=== PATIENT | male | born 1945 | race Caucasian/White ===

== ENCOUNTER → 2017-07-04 14:33 | Outpatient (CLI) | payer MEDICARE, SELFPAY ==
[2017-07-04 15:32] LABS: PSA,Total- Diagnostic 6.26 ng/mL (0.0-4.0)
== END ==
PROVIDERS: Family Provider Family Medicine; PCP Family Medicine; Visit Provider Urology
DX: R97.20 Elevated prostate specific antigen [PSA] (principal)
CPT/HCPCS: 36415; 84153

== ENCOUNTER 2018-03-21 10:34 | Emergency (ER) | payer MEDICARE, SELFPAY ==
[2018-03-21 10:35] VITALS: BP 122/76; PULSE 77; RESP 16; TEMP 36.6; O2SAT 100; BMI 27.4
--- NOTE | 2018-03-21 10:50 | RAD_ITS ---
STUDY: X-RAY - LEFT KNEE REASON FOR EXAM: Male, 72 years old. TECHNIQUE: view(s) of the knee. COMPARISON: None. FINDINGS: There is total knee prosthesis. Multiple calcifications noted within the joint. No joint effusion seen. No obvious complication. RAD/Knee 3 Views IMPRESSION: Intact total knee replacement. Electronically Signed: Jeremy Anderson, at 12:06 EST Tel , Service support ,
[2018-03-21] MEDS: 0.9% Normal Saline 1,000 ML 150 ML IV (11:03)
[2018-03-21 11:18] LABS: Erythrocyte Sedimentation Rate 7 mm/hr (0-20)
[2018-03-21 11:20] LABS: Absolute Lymphocyte Count 1.03 X10^3/ul (0.83-4.51); Absolute Neutrophil Count 3.1 X10^3/uL (2.0-7.7); Basophil# 0.03 X10^3/uL; Basophil% 0.7 % (0-1); Eosinophil# 0.08 X10^3/uL; Eosinophils% 1.8 % (0-5); Hematocrit 41.2 % (40-54); Hemoglobin 13.7 g/dl (13.0-16.5); Lymphocyte # 1.03 X10^3/ul (4.0); Lymphocyte % 23.7 % (19-41); Mean Corp Hgb Conc 33.3 g/gl (32-36); Mean Corpuscular Hgb 32.9 pg (27.0-32.0); Mean Corpuscular Volume 98.8 fL (80-94); Mean Platelet Vol. 9.2 fl (6.2-12.0); Monocyte# 0.15 X10^3/uL; Monocyte% 3.4 % (0-10); Neutrophil # 3.06 X10^3/uL (2.7-7.7); Neutrophil % 70.4 % (47-70); Platelet Count 207 K/mm3 (150-450); RBC Distribution Width CV 13.7 % (11.6-14.6); RBC Distribution Width SD 49.6 fl (35.1-43.9); Red Blood Count 4.17 M/mm3 (4.6-6.2); White Blood Count 4.4 K/mm3 (4.4-11.0)
[2018-03-21 11:24] LABS: POSITIVE COUNT NO; POSITIVE DIFFERENTIAL NO; POSITIVE MORPHOLOGY NO
[2018-03-21 11:31] LABS: Anion Gap 6 (5-15); BUN 12 mg/dL (7-18); BUN/Creat Ratio 14.9 RATIO (10-20); CRP < 2.90 mg/L (0.0-3.0); Calcium,Total 8.7 mg/dL (8.5-10.1); Chloride 103 mmol/L (98-107); Creatinine, Serum 0.81 mg/dL (0.70-1.30); EST Glomerular Filtration Rate 100 mL/min (>60); Est Glom Filt Rate - Afr Amer 121 mL/min (>60); Estimated Creatinine Clearance 69.03 ml/min; Glucose 88 mg/dL (74-106); Potassium 4.2 mmol/L (3.5-5.1); Sodium Level 138 mmol/L (136-145)
[2018-03-21 11:42] VITALS: BP 103/70; PULSE 77; RESP 16; TEMP 36.6; O2SAT 98
--- NOTE | 2018-03-21 12:20 | ED.DCSUM_ITS ---
- ER Visit Summary Date of Service: 03/21/18 Chief Complaint: [Left knee pain] History of Present Illness: The patient is a 72 M [presents the emergency department complaint of pain in his left knee times 2 days. Patient denies any trauma. Patient denies any fever. [facility] [place] [facility] jail but is having a hard time bearing weight. Patient sent to the ER for evaluation today when it was noted that the knee appeared swollen and he has erythema over it and it is warm to the touch. Patient tells me he had a left knee replacement in [address] Zack Alcantara.] Physical Examination: [HEENT-PERRLA, EOMI. Cranial nerves II through XII grossly intact. TMs clear. Mucous membranes moist. No adenopathy. Cardiovascular-regular rate and rhythm without murmur or ectopy Lungs-clear to auscultation, chest wall stable without crepitus or subcu emphysema Abdomen-normoactive bowel sounds, soft, nontender, no rebound or rigidity, no peritoneal signs. Extremities-intact ?4, normal range of motion, normal pulses, atraumatic left knee-patient has a small effusion noted. Patient has some tenderness over the superior lateral aspect of the patella. Patient has some faint erythema over the lateral aspect of the knee. Neurovascular intact distally. There is no li mb injury streaking. Knee is slightly warm to touch and he does have pain with flexion extension of the knee.] Test Results: [CBC with differential obtained showed a white blood cell count of 4.4, hemoglobin 13.7, hematocrit 44, platelets 207. Sed rate was 7. CRP was less than 2.90. X-ray of the left knee showed left total knee to be intact otherwise nothing acute.] Emergency Department Course and Treatment: [Patient case was discussed with Dr. Zack Alcantara who is patient's surgeon of record. At this point I was asked not to perform arthrocentesis but rather have patient follow-up with his office in 2 days. I discussed this with the patient and his sister who understand the plan. They understand I cannot completely rule out a septic joint versus inflammatory arthropathy. I will cover patient with Keflex and patient to see Dr. Zack Alcantara in 2 days. I did outline the area of erythema with permanent marker and advised to return if fever, increasing pain, increased redness or swelling, or condition should worsen anyway.] Treatment Plan: [Patient will be treated with Keflex and follow-up with orthopedic surgeon in 2 days] Disposition: [Discharged home in stable condition] Impression: [Left knee pain Cellulitis left knee] This note was generated with [employer] dictation software. It may contain incorrect words, spelling, and punctuation that were not noted in review of the chart prior to signing ED Disposition - Plan for ED Patient: Chief Complaint: Lower Extremity Injury Referrals: Landon Doe DO [Primary Care Provider] -
--- NOTE | 2018-03-21 12:23 | ED.DEP ---
ED Disposition - Plan for ED Patient: Chief Complaint: Lower Extremity Injury Instructions: ED Knee Pain UKO, ED Infec Skin Cellulitis Prescriptions: Cephalexin [Keflex] 500 mg PO Q6 #40 cap Referrals: Landon Doe DO [Primary Care Provider] - Zack Alcantara DO [STAFF PHYSICIAN] - 2 Days
[2018-03-21] MEDS: Cephalexin 250 MG Capsule 500 MG PO (12:31)
[2018-03-21 12:35] VITALS: BP 119/82; PULSE 77; RESP 16; O2SAT 98
== END 2018-03-21 12:56 | disposition home or self-care (01) ==
LOC: ED 11:27
PROVIDERS: Emergency Provider Emergency Medicine; Family Provider Family Medicine; PCP Family Medicine
DX: M25.562 Pain in left knee (principal); L03.116 Cellulitis of left lower limb; K21.9 Gastro-esophageal reflux disease without esophagitis; Z96.659 Presence of unspecified artificial knee joint
CPT/HCPCS: 73562; 80048; 85025; 85652; 86140; 87040; 96360; 96361; 99283; J7030; A4216

== ENCOUNTER → 2020-03-16 16:42 | Outpatient (REF) | payer MEDICARE, SELFPAY | PROVIDERS: PCP Family Medicine; Referring Provider Family Medicine; Visit Provider Family Medicine | DX: J02.9 Acute pharyngitis, unspecified (principal) | CPT/HCPCS: 87804 ==

== ENCOUNTER → 2020-07-31 05:30 | Outpatient (REF) | payer MEDICARE, SELFPAY ==
[2020-07-31 08:37] LABS: PSA,Total - Annual Screen 7.04 ng/mL (0.00-4.00)
== END ==
PROVIDERS: PCP Family Medicine
DX: Z12.5 Encounter for screening for malignant neoplasm of prostate (principal)
CPT/HCPCS: 36415; 84153; G0103

== ENCOUNTER → 2022-07-22 | Outpatient (CLI) | payer MEDICARE, SELFPAY ==
[2022-07-22 17:56] LABS: Absolute Lymphocyte Count 0.75 X10^3/uL (0.83-4.51); Absolute Neutrophil Count 2.5 X10^3/uL (2.0-7.7); Basophil# 0.05 X10^3/uL; Basophil% 1.3 % (0-1); Eosinophil# 0.03 X10^3/uL; Eosinophils% 0.8 % (0-5); Hematocrit 39.9 % (40-54); Hemoglobin 13.1 g/dL (13.0-16.5); Lymphocyte # 0.75 X10^3/ul (0.83-4.51); Lymphocyte % 19.6 % (19-41); Mean Corp Hgb Conc 32.8 g/dL (32-36); Mean Corpuscular Hgb 33.2 pg (27.0-32.0); Mean Platelet Vol. 9.7 fl (6.2-12.0); Monocyte# 0.54 X10^3/uL; Monocyte% 14.1 % (0-10); NRBC Flagged by Analyzer 0 % (0-5); Neutrophil # 2.45 X10^3/uL (2.7-7.7); Neutrophil % 63.9 % (47-70); Platelet Count 246 K/mm3 (150-450); RBC Distribution Width CV 13.3 % (11.6-14.6); RBC Distribution Width SD 49.9 fl (35.1-43.9); Red Blood Count 3.95 M/mm3 (4.6-6.2); White Blood Count 3.8 K/mm3 (4.4-11.0)
[2022-07-22 18:09] LABS: Vitamin D,25 Hydroxy 22.3 ng/mL
[2022-07-22 18:16] LABS: ALB/GLOB Ratio 1.2 RATIO (0.9-2.4); AST(SGOT) 22 U/L (15-37); Alanine Aminotransfer ALT/SGPT 25 U/L (16-61); Albumin, Serum 3.8 g/dL (3.2-5.0); Alkaline Phosphatase 58 U/L (45-117); Anion Gap 5 (5-15); BUN 12 mg/dL (7-18); BUN/Creat Ratio 14.7 RATIO (10-20); Calcium,Total 8.6 mg/dL (8.5-10.1); Chloride 98 mmol/L (98-107); Creatinine, Serum 0.82 mg/dL (0.70-1.30); EST Glomerular Filtration Rate 97 mL/min (>60); Est Glom Filt Rate - Afr Amer 118 mL/min (>60); Globulin 3.2 g/dL (2.2-4.2); Glucose 118 mg/dL (74-106); Potassium 4.1 mmol/L (3.5-5.1); Sodium Level 130 mmol/L (136-145); Thyroid Stim Hormone (TSH) 1.74 uIU/mL (0.358-3.74)
== END | disposition home or self-care (01) ==
LOC: BFHLAB 15:07
PROVIDERS: PCP Family Medicine; Referring Provider Family Medicine; Visit Provider Family Medicine
DX: I95.9 Hypotension, unspecified (principal); E55.9 Vitamin D deficiency, unspecified; R53.83 Other fatigue
CPT/HCPCS: 36415; 80053; 82306; 84443; 85025

== ENCOUNTER → 2022-11-07 | Outpatient (CLI) | payer MEDICARE, SELFPAY ==
[2022-11-07 17:28] LABS: Vitamin B12 249 pg/mL (211-911)
== END | disposition home or self-care (01) ==
LOC: BFHLAB 13:28
PROVIDERS: PCP Family Medicine; Referring Provider Family Medicine; Visit Provider Family Medicine
DX: D75.89 Other specified diseases of blood and blood-forming organs (principal)
CPT/HCPCS: 36415; 82607

== ENCOUNTER → 2023-07-24 | Outpatient (CLI) | payer MEDICARE, SELFPAY ==
[2023-07-24 17:52] LABS: Absolute Lymphocyte Count 0.74 X10^3/uL (0.83-4.51); Absolute Neutrophil Count 2.9 X10^3/uL (2.0-7.7); Basophil# 0.06 X10^3/uL; Basophil% 1.3 % (0-1); Eosinophil# 0.08 X10^3/uL; Eosinophils% 1.8 % (0-5); Hematocrit 38.1 % (40-54); Hemoglobin 12.8 g/dL (13.0-16.5); Lymphocyte # 0.74 X10^3/ul (0.83-4.51); Lymphocyte % 16.4 % (19-41); Mean Corp Hgb Conc 33.6 g/dL (32-36); Mean Corpuscular Hgb 33.1 pg (27.0-32.0); Mean Corpuscular Volume 98.4 fL (80-94); Mean Platelet Vol. 9.6 fl (6.2-12.0); Monocyte# 0.66 X10^3/uL; Monocyte% 14.7 % (0-10); NRBC Flagged by Analyzer 0 % (0-5); Neutrophil # 2.93 X10^3/uL (2.7-7.7); Neutrophil % 65.1 % (47-70); Platelet Count 225 K/mm3 (150-450); RBC Distribution Width SD 50.4 fl (35.1-43.9); Red Blood Count 3.87 M/mm3 (4.6-6.2); White Blood Count 4.5 K/mm3 (4.4-11.0)
[2023-07-24 18:00] LABS: Vitamin B12 623 pg/mL (211-911); Vitamin D,25 Hydroxy 35.8 ng/mL
[2023-07-24 18:16] LABS: ALB/GLOB Ratio 1.1 RATIO (0.9-2.4); AST(SGOT) 21 U/L (15-37); Alanine Aminotransfer ALT/SGPT 19 U/L (16-61); Albumin, Serum 3.7 g/dL (3.2-5.0); Alkaline Phosphatase 62 U/L (45-117); Anion Gap 8 (5-15); BUN 16 mg/dL (7-18); BUN/Creat Ratio 22.8 RATIO (10-20); Calcium,Total 8.8 mg/dL (8.5-10.1); Chloride 101 mmol/L (98-107); EST Glomerular Filtration Rate 116 mL/min (>60); Est Glom Filt Rate - Afr Amer 140 mL/min (>60); Globulin 3.3 g/dL (2.2-4.2); Glucose 125 mg/dL (74-106); Potassium 4.3 mmol/L (3.5-5.1); Sodium Level 132 mmol/L (136-145)
== END | disposition home or self-care (01) ==
LOC: BFHLAB 14:05
PROVIDERS: PCP Family Medicine; Visit Provider Family Medicine
DX: D72.819 Decreased white blood cell count, unspecified (principal); D75.89 Other specified diseases of blood and blood-forming organs; E55.9 Vitamin D deficiency, unspecified; R53.83 Other fatigue
CPT/HCPCS: 36415; 80053; 82306; 82607; 85025

== ENCOUNTER → 2024-12-09 | Outpatient (CLI) | payer MEDICARE, MEDICAID, SELFPAY ==
[2024-12-09 17:38] LABS: Hematocrit 39.6 % (40-54); Hemoglobin 13.4 g/dL (13.0-16.5); Immature Granulocytes Count 0.010 X10^3/uL (0.0-0.0); Mean Corp Hgb Conc 33.8 g/dL (32-36); Mean Corpuscular Volume 97.8 fL (80-94); Mean Platelet Vol. 9.8 fl (6.2-12.0); NRBC Flagged by Analyzer 0 % (0-5); Platelet Count 253 K/mm3 (150-450); RBC Distribution Width CV 14.0 % (11.6-14.6); RBC Distribution Width SD 50.4 fl (35.1-43.9); Red Blood Count 4.05 M/mm3 (4.6-6.2); White Blood Count 4.4 K/mm3 (4.4-11.0)
[2024-12-09 19:34] LABS: CRP < 3.00 mg/L (0.0-3.0); Uric Acid 4.5 mg/dL (3.5-7.2)
--- OUTSIDE RECORDS SUMMARY | 2024-12-09 23:38 | XMS RPT_ITS | CCD ---
Author Organization [facility] Care Team Providers Care Chief Service Observer Name Role Phone Landon Doe Primary Care Provider Landon Doe Attending Unavailable Landon Doe Referring Unavailable Landon Doe Primary Care Unavailable Landon Doe Attending Unavailable Landon Doe Primary Care Unavailable Allergies Allergy Classification Reported Allergen(s) Allergy Type Date of Onset Reaction(s) Facility (3 sources) Penicillins Allergy to substance 03-21-2018 Unknown [facility] (1 source) Penicillins Drug allergy (disorder) 03-21-2018 [facility] Repository Medications Current Medications Medication Drug Class(es) Dates Sig (Normalized) Sig (Original) acetaminophen 500 mg oral tablet (3 sources) Start: 04-09-2015 Acetaminophen (Non-Aspirin Extra Strength) 500 MG tablet Active 1000 MG PO EVERY 6 HOURS NEEDED April 09, 2015 1:00am acetaminophen 325 mg / oxyCODONE hydrochloride 5 mg oral tablet (3 sources) Opioid Agonist Start: 10-21-2016 take 1 tablet by mouth every four hours as needed Oxycodone-Acetamino phen Active 1 - 2 TABLET PO EVERY 4 HOURS NEEDED October 21, 2016 12:00am ascorbic acid 500 mg oral tablet (4 sources) Vitamin C Start: 04-09-2015 take 1 tablet by mouth once daily Ascorbic Acid (Vitamin C) (Vitamin C) 500 MG tablet Active 500 MG PO DAILY April 09, 2015 1:00am Comment on above: Take 500 mg by mouth once daily. calcium carbonate 1500 mg oral tablet (3 sources) Start: 04-09-2015 take 1200 mg by mouth twice daily Calcium Carbonate Active 1200 MG PO TWICE A DAY April 09, 2015 1:00am cephalexin 500 mg oral capsule (3 sources) Cephalosporin Antibacterial Start: 03-21-2018 take 500 mg by mouth every six hours Cephalexin Active 500 MG PO EVERY 6 HOURS 40 March 21, 2018 1:00am cholecalciferol 0.025 mg oral tablet (3 sources) Vitamin D Start: 04-09-2015 take 1 tablet by mouth twice daily Cholecalciferol (Vitamin D3) (Vitamin D3) 1,000 UNIT tablet Active 1000 UNIT PO TWICE A DAY April 09, 2015 1:00am docusate sodium 100 mg oral capsule (3 sources) Start: 04-09-2015 take 1 capsule by mouth once daily as needed Docusate Sodium (Dok) 100 MG capsule Active 100 MG PO DAILY NEEDED April 09, 2015 1:00am Fish Oil-Dha-Epa (3 sources) Start: 04-09-2015 Fish Oil-Dha-Epa Active 1 EACH PO DAILY April 09, 2015 1:00am hydrocortisone butyrate 1 mg/ml topical cream (3 sources) Corticosteroid Start: 04-09-2015 Hydrocortisone Butyr-Emollient Active 45 GM TP DAILY April 09, 2015 1:00am lansoprazole 15 mg delayed release oral capsule (5 sources) Proton Pump Inhibitor Start: 04-09-2015 take 1 capsule by mouth once daily Lansoprazole (Prevacid) 15 MG capsule Active 15 MG PO DAILY April 09, 2015 1:00am Start: 10-05-2009 take 1 capsule by mo ut once daily lansoprazole (PREVACID) 30 mg capsule Take 1 capsule by mouth once daily. 30 capsule 12 01/04/2016 Active Comment on above: Take (1) once daily as needed Take 1 capsule by mo uth once daily. magnesium hydroxide 80 mg/ml oral suspension (3 sources) Start: 04-09-2015 take 1 mL by mouth once daily as needed Magnesium Hydroxide Active 30 ML PO DAILY NEEDED April 09, 2015 1:00am Bawjufge-Ewv-If-Lycopen -Lutein (Centrum Silver) 1 EACH tablet (3 sources) Start: 04-09-2015 take 1 tablet by mouth once daily Fqgkfyfi-Jlo-Le-Lyc open-Lutein (Centrum Silver) 1 EACH tablet Active 1 EACH PO DAILY April 09, 2015 1:00am traMADol hydrochloride 50 mg oral tablet (4 sources) Opioid Agonist Start: 08-23-2015 take 50 mg by mouth twice daily as needed Tramadol Active 50 MG PO TWICE DAILY NEEDED October 21, 2016 12:00am Completed/Discontinued Medications Medication Drug Class(es) Dates Sig (Normalized) Sig (Original) calcium carbonate 600 mg / cholecalciferol 125 unt oral tablet (1 source) Vitamin D Start: 10-05-2009 calcium carbonate/vitamin d3(CALCIUM 600 + D(3) 600 MG-125 UNIT TAB) Take one(1) tablet two(2) times daily. 0 10/05/2009 Active Comment on above: Take one(1) tablet t wo(2) times daily. chlordiazePOXIDE hydrochloride 5 mg / clidinium bromide 2.5 mg oral capsule (1 source) Anticholinergic, Benzodiazepine Start: 08-02-2010 take 1 capsule by mouth once daily, then take 5 capsules by mouth once chlordiazepoxide- clidinium 5-2.5 mg ORAL per capsule Indications: Dyspepsia , Abdominal pain, unspecified site Take 1 capsule by mouth. Take one(1) capsule two(2) times daily. (may use generic) 30 capsule 3 08/02/2010 Active Comment on above: Take 1 capsule by mo ut. Take one(1) capsule two(2) times daily. (may use generic) Fish Oil-Amado-3 Fatty Acids 300-1,000 mg cap (1 source) Fish Oil-Amado-3 Fatty Acids 300-1,000 mg cap Take by mouth twice daily. 0 Active Comment on above: Take by mouth twice daily. MEDICATION, NON-DATABASE (1 source) Start: 10-05-2009 MEDICATION, NON-DATABASE Vitamin D 1000 IU twice a day 0 10/05/2009 Active Comment on above: Vitamin D 1000 IU tw ice a day MULTIVITAMIN TAB (1 source) Start: 10-01-2009 MULTIVITAMIN TAB Take one(1) tablet daily. 0 10/01/2009 Active Comment on above: Take one(1) tablet d aily. naproxen sodium 220 mg oral tablet (3 sources) Nonsteroidal Anti-inflammatory Drug Start: 04-09-2015 End: 04-20-2015 take 1 tablet by mouth every twelve hours as needed Naproxen Sodium (Aleve) 220 MG tablet Discontinued 220 MG PO EVERY 12 HOURS NEEDED April 09, 2015 1:00am April 20, 2015 3:15pm Problems Active Problems Problem Classification Problem Date Documented Da te Episodic/Chronic Deficiency and other anemia (1 source) Iron deficiency anemia due to blood loss; Translations: [Iron deficiency anemia secondary to blood loss (chronic)] Onset: 6 04-18-2015 Chronic Diseases of white blood cells (1 source) Decreased white blood cell count, unspecified; Translations: [Decreased white blood cell count, unspecified] Onset: 4 Chronic Gastrointestinal hemorrhage (3 sources) Gastritis medicamentosa; Translations: [Gastrointestinal hemorrhage, unspecified] 04-09-2015 Episodic Other connective tissue disease (3 sources) Pain in lower limb; Translations: [Pain in leg, unspecified] 04-09-2015 Episodic Other connective tissue disease (3 sources) Pain in left lower limb; Translations: [Pain in left leg] 04-09-2015 Episodic Other gastrointestinal disorders (3 sources) Pneumoperitoneum; Translations: [Other specified disorders of peritoneum] 04-09-2015 Episodic Other hematologic conditions (1 source) 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; Translations: [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] Onset: 3 Chronic Other injuries and conditions due to external causes (3 sources) Injury of head; Translations: [Unspecified injury of head, initial encounter] 04-09-2015 Episodic Peritonitis and intestinal abscess (3 sources) Peritonitis; Translations: [Peritonitis, unspecified] 04-09-2015 Episodic Residual codes; unclassified (1 source) Family history of malignant neoplasm of gastrointestinal tract; Translations: [Family history of malignant neoplasm of digestive organs] 10-01-2009 Episodic Unclassified (3 sources) multiple orthopedic surgeries 04-09-2015 Past or Other Problems Problem Classification Problem Date Documented Da te Episodic/Chronic Gastritis and duodenitis (1 source) Acute gastritis; Translations: [Acute gastritis without bleeding] Onset: 11-12-2009 05-07-2015 Episodic Gastroduodenal ulcer (except hemorrhage) (1 source) Acute gastric ulcer with perforation; Translations: [Acute gastric ulcer with perforation] Onset: 04-18-2015 04-18-2015 Episodic Shock (1 source) Hypovolemic shock; Translations: [Hypovolemic shock] Onset: 04-18-2015 04-18-2015 Episodic Results Test Name Value Interpretation Reference Range Facility Absolute lymphocyte countOrd ered By: Landon Doe on 07-24-2023 Lymphocytes Auto (Unsp spec) [#/Vol] 0.74 10*3/uL 0.83-4.51 [facility] Automated lymphocyte count a s percentage of total leukocytesOrdered By: Landon Doe on 07-24-2023 Lymphocytes/100 WBC Auto (Unsp spec) 16.4 % 19-41 [facility] Basophil percentageOrdered B y: Landon Doe on 07-24-2023 Basophils/100 WBC (Bld) 1.3 % 0-1 [facility] Bilirubin [Mass/Vol] 0.40 mg/dL 0.20-1.00 [facility] Comment on above: For patients on eltr ombopag therapy, use of Dimension [place] TBIL is not recommended. Chloride [Moles/Vol] 101 mmol/L 98-107 [facility] Eosinophils/100 WBC (Bld) 1.8 % 0-5 [facility] Glucose [Mass/Vol] 125 mg/dL 74-106 [facility] Comment on above: Fasting Glucose resu lt from 100 to 125 mg/dL suggests IMPAIRED HOMEOSTASIS per A.D.A. criteria. Hemoglobin (Bld) [Mass/Vol] 12.8 g/dL 13.0-16.5 [facility] Monocytes/100 WBC (Bld) 14.7 % 0-10 [facility] Neutrophils (Bld) [#/Vol] 2.9 10*3/uL 2.0-7.7 [facility] Neutrophils/100 WBC (Bld) 65.1 % 47-70 [facility] Potassium [Moles/Vol] 4.3 mmol/L 3.5-5.1 [facility] Protein [Mass/Vol] 7.0 g/dL 6.4-8.2 [facility] Sodium [Moles/Vol] 132 mmol/L 136-145 [facility] WBC (Bld) [#/Vol] 4.5 10*3/uL 4.4-11.0 [facility] CBC W/Diff, Automatedon 06-26 Absolute Lymph 0.74 X10 3/uL Low 0.83-4.51 [facility] Comment on above: Performed By: #### L 506.1000, L100.0100, L503.0105, [id number] #### [facility] [address] [place], [address] Absolute Neut 2.9 X10 3/uL Normal 2.0-7.7 [facility] Comment on above: Performed By: #### L 506.1000, L100.0100, L503.0105, [id number] #### [facility] [address] [place], [address] Basophils/100 WBC (Bld) 1.3 % High 0-1 [facility] Comment on above: Performed By: #### L 506.1000, L100.0100, L503.0105, [id number] #### [facility] [address] [place], [address] Eosinophils/100 WBC (Bld) 1.8 % Normal 0-5 [facility] Comment on above: Performed By: #### L 506.1000, L100.0100, L503.0105, [id number] #### [facility] [address] [place], [address] Erythrocyte distribution width (RBC) [Ratio] 14.0 % Normal 11.6-14.6 [facility] Comment on above: Performed By: #### L 506.1000, L100.0100, L503.0105, [id number] #### [facility] [address] [place], [address] Hematocrit (Bld) [Volume fraction] 38.1 % Low 40-54 [facility] Comment on above: Performed By: #### L 506.1000, L100.0100, L503.0105, [id number] #### [facility] [address] [place], [address] Hemoglobin (Bld) [Mass/Vol] 12.8 g/dL Low 13.0-16.5 [facility] Comment on above: Performed By: #### L 506.1000, L100.0100, L503.0105, [id number] #### [facility] [address] [place], [address] IG% 0.700 Normal 0.0-0.9 [facility] Comment on above: Result Comment: IG% - Immature Granulocytes (promyelocytes, myelocytes and metamyelocytes) > 1% indicates that a LEFT SHIFT is Present. Performed By: #### L 506.1000, L100.0100, L503.0105, [id number] #### [facility] [address] [place], [address] Lymphocytes/100 WBC (Bld) 16.4 % Low 19-41 [facility] Comment on above: Performed By: #### L 506.1000, L100.0100, L503.0105, [id number] #### [facility] [address] [place], [address] MCH (RBC) [Entitic mass] 33.1 pg High 27.0-32.0 [facility] Comment on above: Performed By: #### L 506.1000, L100.0100, L503.0105, [id number] #### [facility] [address] [place], [address] MCHC (RBC) [Mass/Vol] 33.6 g/dL Normal 32-36 [facility] Comment on above: Performed By: #### L 506.1000, L100.0100, L503.0105, [id number] #### [facility] [address] [place], [address] MCV (RBC) [Entitic vol] 98.4 fL High 80-94 [facility] Comment on above: Performed By: #### L 506.1000, L100.0100, L503.0105, [id number] #### [facility] [address] [place], [address] Monocytes/100 WBC (Bld) 14.7 % High 0-10 [facility] Comment on above: Performed By: #### L 506.1000, L100.0100, L503.0105, [id number] #### [facility] [address] [place], [address] Neutrophils/100 WBC (Bld) 65.1 % Normal 47-70 [facility] Comment on above: Performed By: #### L 506.1000, L100.0100, L503.0105, [id number] #### [facility] [address] [place], [address] Nucleated RBC (Bld) [#/Vol] 0 10*3/uL Normal 0-5 [facility] Comment on above: Performed By: #### L 506.1000, L100.0100, L503.0105, [id number] #### [facility] [address] [place], [address] Platelet mean volume (Bld) [Entitic vol] 9.6 fL Normal 6.2-12.0 [facility] Comment on above: Performed By: #### L 506.1000, L100.0100, L503.0105, [id number] #### [facility] [address] [place], [address] Platelets (Bld) [#/Vol] 225 10*3/uL Normal 150-450 [facility] Comment on above: Performed By: #### L 506.1000, L100.0100, L503.0105, [id number] #### [facility] [address] [place], [address] RBC (Bld) [#/Vol] 3.87 10*6/uL Low 4.6-6.2 [facility] Comment on above: Performed By: #### L 506.1000, L100.0100, L503.0105, [id number] #### [facility] [address] [place], [address] RDW SD 50.4 fl High 35.1-43.9 [facility] Comment on above: Performed By: #### L 506.1000, L100.0100, L503.0105, [id number] #### [facility] [address] [place], [address] WBC (Bld) [#/Vol] 4.5 10*3/uL Normal 4.4-11.0 [facility] Comment on above: Performed By: #### L 506.1000, L100.0100, L503.0105, [id number] #### [facility] [address] [place], [address] Comprehensive Metabolic Prof ilon 07-24-2023 Albumin [Mass/Vol] 3.7 g/dL Normal 3.2-5.0 [facility] Comment on above: Performed By: #### L 506.1000, L100.0100, L503.0105, [id number] #### [facility] [address] [place], [address] Albumin/Globulin [Mass ratio] 1.1 {ratio} Normal 0.9-2.4 [facility] Comment on above: Performed By: #### L 506.1000, L100.0100, L503.0105, [id number] #### [facility] [address] [place], [address] ALK P 62 U/L Normal 45-117 [facility] Comment on above: Performed By: #### L 506.1000, L100.0100, L503.0105, [id number] #### [facility] [address] [place], [address] ALT [Catalytic activity/Vol] 19 U/L Normal 16-61 [facility] Comment on above: Performed By: #### L 506.1000, L100.0100, L503.0105, [id number] #### [facility] [address] [place], [address] AST [Catalytic activity/Vol] 21 U/L Normal 15-37 [facility] Comment on above: Performed By: #### L 506.1000, L100.0100, L503.0105, [id number] #### [facility] [address] [place], [address] Bilirubin [Mass/Vol] 0.40 mg/dL Normal 0.20-1.00 [facility] Comment on above: Result Comment: For patients on eltrombopag therapy, use of Dimension [place] TBIL is not recommended. Performed By: #### L 506.1000, L100.0100, L503.0105, [id number] #### [facility] [address] [place], [address] BUN/CRE 22.8 RATIO High 10-20 [facility] Comment on above: Performed By: #### L 506.1000, L100.0100, L503.0105, [id number] #### [facility] [address] [place], [address] CA,Total 8.8 mg/dL Normal 8.5-10.1 [facility] Comment on above: Performed By: #### L 506.1000, L100.0100, L503.0105, [id number] #### [facility] [address] [place], [address] Chloride [Moles/Vol] 101 mmol/L Normal 98-107 [facility] Comment on above: Performed By: #### L 506.1000, L100.0100, L503.0105, [id number] #### [facility] [address] [place], [address] CO2 [Moles/Vol] 23.0 mmol/L Normal 21.0-32.0 [facility] Comment on above: Performed By: #### L 506.1000, L100.0100, L503.0105, [id number] #### [facility] [address] [place], [address] Creatinine [Mass/Vol] 0.70 mg/dL Normal 0.70-1.30 [facility] Comment on above: Result Comment: The validity of the calculated GFR GFRAA in patients over 70 years has not been determined. Clinical correlation is essential. Performed By: #### L 506.1000, L100.0100, L503.0105, [id number] #### [facility] [address] [place], [address] EST GFR - AA 140 mL/min Normal >60 [facility] Comment on above: Result Comment: Afri can Omani GFR Calc Performed By: #### L 506.1000, L100.0100, L503.0105, [id number] #### [facility] [address] [place], [address] GAP 8 Normal 5-15 [facility] Comment on above: Performed By: #### L 506.1000, L100.0100, L503.0105, [id number] #### [facility] [address] [place], [address] GFR/1.73 sq M.predicted among non-blacks MDRD (S/P/Bld) [Vol rate/Area] 116 mL/min/{1.73_m2} Normal >60 [facility] Comment on above: Result Comment: Non- GFR Calc Performed By: #### L 506.1000, L100.0100, L503.0105, [id number] #### [facility] [address] [place], [address] Globulin (S) [Mass/Vol] 3.3 g/dL Normal 2.2-4.2 [facility] Comment on above: Performed By: #### L 506.1000, L100.0100, L503.0105, L500.4050 #### [facility] [address] [place], [address] Glucose [Mass/Vol] 125 mg/dL High 74-106 [facility] Comment on above: Result Comment: Fast ing Glucose result from 100 to 125 mg/dL suggests IMPAIRED HOMEOSTASIS per A.D.A. criteria. Performed By: #### L 506.1000, L100.0100, L503.0105, L500.4050 #### [facility] [address] [place], [address] Potassium [Moles/Vol] 4.3 mmol/L Normal 3.5-5.1 [facility] Comment on above: Performed By: #### L 506.1000, L100.0100, L503.0105, L500.4050 #### [facility] [address] [place], [address] Sodium [Moles/Vol] 132 mmol/L Low 136-145 [facility] Comment on above: Performed By: #### L 506.1000, L100.0100, L503.0105, L500.4050 #### [facility] [address] [place], [address] T PROT 7.0 g/dL Normal 6.4-8.2 [facility] Comment on above: Performed By: #### L 506.1000, L100.0100, L503.0105, L500.4050 #### [facility] [address] [place], [address] Urea nitrogen [Mass/Vol] 16 mg/dL Normal 7-18 [facility] Comment on above: Performed By: #### L 506.1000, L100.0100, L503.0105, L500.4050 #### [facility] [address] [place], [address] Determination of erythrocyte mean corpuscular volume (MCV)Ordered By: Landon Doe on 07-24-2023 MCV (RBC) [Entitic vol] 98.4 fL 80-94 [facility] Erythrocyte distribution wid th ratioOrdered By: Landon Doe on 07-24-2023 Erythrocyte distribution width (RBC) [Ratio] 14.0 % 11.6-14.6 [facility] Erythrocyte distribution wid th standard deviationOrdered By: Landon Doe on 07-24-2023 Erythrocyte distribution width (RBC) [Entitic vol] 50.4 fL 35.1-43.9 [facility] Hematocrit Auto (Bld) [Volum e fraction]Ordered By: Landon Doe on 07-24-2023 Hematocrit (Bld) [Volume fraction] 38.1 % 40-54 [facility] Immature granulocytes/100 WB C Auto (Bld)Ordered By: Landon Doe on 07-24-2023 Immature granulocytes/100 WBC (Bld) 0.700 % 0.0-0.9 [facility] Comment on above: IG% - Immature Granu locytes (promyelocytes, myelocytes and metamyelocytes) > 1% indicates that a LEFT SHIFT is Present. Laboratory - Chemistry and C hemistry - challengeOrdered By: Landon Doe on 07-24-2023 Albumin/Globulin [Mass ratio] 1.1 {ratio} 0.9-2.4 [facility] ALP [Catalytic activity/Vol] 62 U/L 45-117 [facility] ALT [Catalytic activity/Vol] 19 U/L 16-61 [facility] CO2 [Moles/Vol] 23.0 mmol/L 21.0-32.0 [facility] Globulin (S) [Mass/Vol] 3.3 g/dL 2.2-4.2 [facility] Urea nitrogen/Creatinine [Mass ratio] 22.8 mg/mg 10-20 [facility] Laboratory - Hematology and Cell countsOrdered By: Landon Doe on 07-24-2023 MCH (RBC) [Entitic mass] 33.1 pg 27.0-32.0 [facility] MCHC (RBC) [Mass/Vol] 33.6 g/dL 32-36 [facility] Nucleated RBC/100 WBC (Bld) [Ratio] 0 % 0-5 [facility] Platelet mean volume (Bld) [Entitic vol] 9.6 fL 6.2-12.0 [facility] Platelets (Bld) [#/Vol] 225 10*3/uL 150-450 [facility] No Panel InformationOrdered By: Landon Doe on 07-24-2023 Estimated GFR (MDRD) Amer 140 mL/min >60 [facility] Comment on above: GFR Calc Estimated GFR (MDRD) Non-Af Amer 116 mL/min >60 [facility] Comment on above: Non- GFR Calc Vitamin D 25-Hydroxy 35.8 ng/mL [facility] Comment on above: Vitamin D 25(OH) Sta tus Range Deficiency <20 ng/mL (50nmol/L) Insufficiency 20 - 30 ng/mL (50 - 75 nmol/L) Sufficiency 30 - 100 ng/mL (75 - 250 nmol/L) Toxicity >100 ng/mL (>250 nmol/L) RBC Auto (Bld) [#/Vol]Ordere d By: Landon Doe on 07-24-2023 RBC (Bld) [#/Vol] 3.87 10*6/uL 4.6-6.2 [facility] Serum or plasma calcium kira urement (mass/volume)Ordered By: Landon Doe on 07-24-2023 Calcium [Mass/Vol] 8.8 mg/dL 8.5-10.1 [facility] Serum or plasma creatinine m easurement (mass/volume)Ordered By: Landon Doe on 07-24-2023 Creatinine [Mass/Vol] 0.70 mg/dL 0.70-1.30 [facility] Comment on above: The validity of the calculated GFR & GFRAA in patients over 70 years has not been determined. Clinical correlation is essential. Serum or plasma urea nitroge n measurement (mass/volume)Ordered By: Landon Doe on 07-24-2023 Urea nitrogen [Mass/Vol] 16 mg/dL 7-18 [facility] Thin prep Papanicolaou smear with manual screeningOrdered By: Landon Doe on 07-24-2023 Thin prep Papanicolaou smear with manual screening 3.7 g/dL 3.2-5.0 [facility] Thin prep Papanicolaou smear with manual screening 21 U/L 15-37 [facility] Thin prep Papanicolaou smear with manual screening 8 5-15 [facility] Vitamin [id number] By: Landon Doe on 07-24-2023 Cobalamin (Vitamin B12) [Mass/Vol] 623 pg/mL Normal [facility] Comment on above: Performed By: #### L 506.1000, L100.0100, L503.0105, L500.4050 #### [facility] [address] [place], [address] Vitamin D,25 Hydroxyon 07-23 Vitamin D 25-OH 35.8 ng/mL Normal [facility] Comment on above: Result Comment: Betsy min D 25(OH) Status Range Deficiency <20 ng/mL (50nmol/L) Insufficiency 20 - 30 ng/mL (50 - 75 nmol/L) Sufficiency 30 - 100 ng/mL (75 - 250 nmol/L) Toxicity >100 ng/mL (>250 nmol/L) Performed By: #### L 506.1000, L100.0100, L503.0105, L500.4050 #### [facility] [address] [place], [address] Laboratory - Chemistry and C hemistry - challengeOrdered By: Landon Doe on 11-07-2022 Cobalamin (Vitamin B12) [Mass/Vol] 249 pg/mL [facility] Vitamin B12on 11-07-2022 Cobalamin (Vitamin B12) [Mass/Vol] 249 pg/mL Normal [facility] Comment on above: Performed By: #### L 503.0105 #### [facility] [address] [place], [address] Absolute lymphocyte countOrd ered By: Dr. Doe on 07-22-2022 Lymphocytes Auto (Unsp spec) [#/Vol] 0.75 10*3/uL 0.83-4.51 [facility] Basophil percentageOrdered B y: Dr. Doe on 07-22-2022 Basophils/100 WBC (Bld) 1.3 % 0-1 [facility] Bilirubin [Mass/Vol] 0.40 mg/dL 0.20-1.00 [facility] Comment on above: For patients on eltr ombopag therapy, use of Dimension [place] TBIL is not recommended. Chloride [Moles/Vol] 98 mmol/L 98-107 [facility] Eosinophils/100 WBC (Bld) 0.8 % 0-5 [facility] Glucose [Mass/Vol] 118 mg/dL 74-106 [facility] Comment on above: Fasting Glucose resu lt from 100 to 125 mg/dL suggests IMPAIRED HOMEOSTASIS per A.D.A. criteria. Neutrophils (Bld) [#/Vol] 2.5 10*3/uL 2.0-7.7 [facility] Neutrophils/100 WBC (Bld) 63.9 % 47-70 [facility] Potassium [Moles/Vol] 4.1 mmol/L 3.5-5.1 [facility] Protein [Mass/Vol] 7.0 g/dL 6.4-8.2 [facility] Sodium [Moles/Vol] 130 mmol/L 136-145 [facility] WBC (Bld) [#/Vol] 3.8 10*3/uL 4.4-11.0 [facility] Blood erythrocytes count (nu mber/volume)Ordered By: Dr. Doe on 07-22-2022 RBC (Bld) [#/Vol] 3.95 10*6/uL 4.6-6.2 [facility] Blood hemoglobin measurement (mass/volume)Ordered By: Dr. Doe on 07-22-2022 Hemoglobin (Bld) [Mass/Vol] 13.1 g/dL 13.0-16.5 [facility] Blood lymphocytes/100 leukoc ytesOrdered By: Dr. Doe on 07-22-2022 Lymphocytes/100 WBC (Bld) 19.6 % 19-41 [facility] Blood monocytes/100 leukocyt esOrdered By: Dr. Doe on 07-22-2022 Monocytes/100 WBC (Bld) 14.1 % 0-10 [facility] Blood platelet mean volumeOr dered By: Dr. Doe on 07-22-2022 Platelet mean volume (Bld) [Entitic vol] 9.7 fL 6.2-12.0 [facility] Determination of erythrocyte mean corpuscular volume (MCV)Ordered By: Dr. Doe on 07-22-2022 MCV (RBC) [Entitic vol] 101.0 fL 80-94 [facility] Hematocrit Auto (Bld) [Volum e fraction]Ordered By: Dr. Doe on 07-22-2022 Hematocrit (Bld) [Volume fraction] 39.9 % 40-54 [facility] Laboratory - Chemistry and C hemistry - challengeOrdered By: Dr. Doe on 07-22-2022 ALP [Catalytic activity/Vol] 58 U/L 45-117 [facility] ALT [Catalytic activity/Vol] 25 U/L 16-61 [facility] CO2 [Moles/Vol] 27.0 mmol/L 21.0-32.0 [facility] Globulin (S) [Mass/Vol] 3.2 g/dL 2.2-4.2 [facility] Urea nitrogen/Creatinine [Mass ratio] 14.7 mg/mg 10-20 [facility] - Hematology and Cell countsOrdered By: Dr. Doe on 07-22-2022 Erythrocyte distribution width (RBC) [Entitic vol] 49.9 fL 35.1-43.9 [facility] Erythrocyte distribution width (RBC) [Ratio] 13.3 % 11.6-14.6 [facility] Immature granulocytes/100 WBC (Bld) 0.300 % 0.0-0.9 [facility] Comment on above: IG% - Immature Granu locytes (promyelocytes, myelocytes and metamyelocytes) > 1% indicates that a LEFT SHIFT is Present. MCH (RBC) [Entitic mass] 33.2 pg 27.0-32.0 [facility] Nucleated RBC/100 WBC (Bld) [Ratio] 0 % 0-5 [facility] MCHC Auto (RBC) [Mass/Vol]Or dered By: Dr. Doe on 07-22-2022 MCHC (RBC) [Mass/Vol] 32.8 g/dL 32-36 [facility] No Panel InformationOrdered By: Dr. Doe on 07-22-2022 Estimated GFR (MDRD) Amer 118 mL/min >60 [facility] Comment on above: GFR Calc Estimated GFR (MDRD) Non-Af Amer 97 mL/min >60 [facility] Comment on above: Non- GFR Calc Thyroid Stimulating Hormone (TSH) 1.74 uIU/mL 0.358-3.74 [facility] Vitamin D 25-Hydroxy 22.3 ng/mL [facility] Comment on above: Vitamin D 25(OH) Sta tus Range Deficiency <20 ng/mL (50nmol/L) Insufficiency 20 - 30 ng/mL (50 - 75 nmol/L) Sufficiency 30 - 100 ng/mL (75 - 250 nmol/L) Toxicity >100 ng/mL (>250 nmol/L) Platelets bldOrdered By: Dr. Doe on 07-22-2022 Platelets (Bld) [#/Vol] 246 10*3/uL 150-450 [facility] Serum or plasma albumin kira urement (mass/volume)Ordered By: Dr. Doe on 07-22-2022 Albumin [Mass/Vol] 3.8 g/dL 3.2-5.0 [facility] Serum or plasma albumin/glob ulin mass ratioOrdered By: Dr. Doe on 07-22-2022 Albumin/Globulin [Mass ratio] 1.2 {ratio} 0.9-2.4 [facility] Serum or plasma calcium kira urement (mass/volume)Ordered By: Dr. Doe on 07-22-2022 Calcium [Mass/Vol] 8.6 mg/dL 8.5-10.1 [facility] Serum or plasma creatinine m easurement (mass/volume)Ordered By: Dr. Doe on 07-22-2022 Creatinine [Mass/Vol] 0.82 mg/dL 0.70-1.30 [facility] Comment on above: The validity of the calculated GFR & GFRAA in patients over 70 years has not been determined. Clinical correlation is essential. Serum or plasma urea nitroge n measurement (mass/volume)Ordered By: Dr. Doe on 07-22-2022 Urea nitrogen [Mass/Vol] 12 mg/dL 7-18 [facility] Thin prep Papanicolaou smear with manual screeningOrdered By: Dr. Doe on 07-22-2022 Thin prep Papanicolaou smear with manual screening 22 U/L 15-37 [facility] Thin prep Papanicolaou smear with manual screening 5 5-15 [facility] Encounters Encounter Date Encounter Type Care Provider Facility Start: 07-24-2023 End: 07-24-2023 ambulatory [facility] Work Phone: Start: 07-24-2023 End: 07-24-2023 [facility] Start: 07-24-2023 End: 07-24-2023 ambulatory [facility] Facility:[facility] Start: 11-07-2022 End: 11-07-2022 ambulatory [facility] Work Phone: Start: 11-07-2022 End: 11-07-2022 [facility] Start: 11-07-2022 End: 11-07-2022 ambulatory [facility] Facility:[facility] Start: 07-22-2022 End: 07-22-2022 ambulatory [facility] Work Phone: Start: 07-22-2022 End: 07-22-2022 [facility] Start: 03-13-2017 End: 03-13-2017 REFILL - MYCHART Elizabeth Carnes PA-C Work Phone: General Surgery Comment on above: RE: Medication Renew al Request Procedures Date Procedure Procedure Detail Performing Clinician Start: 05-26-2015 Colonoscopy Elizabeth melgoza PA-C Work Phone: Plan of Treatment Date Care Activity Detail Author Start: 11-25-2020 Influenza vaccination INFLUENZA (Sea son Ended) [facility] Start: 05-25-2020 Screening for malign ant neoplasm of colon [facility] Start: 2010 ADVANCE DIRECTIVE DISCUSSION ADVANCE DIRECTIVE DISCUSSION [facility] Start: 2010 PNEUMOVAX AGE 65 AND OVER WITH 5YR LOOKBACK (#1) PNEUMOVAX AGE 65 AND OVER WITH 5YR LOOKBACK (#1) [facility] Start: 09-25-1995 Screening for malign ant neoplasm of colon [facility] Start: 09-25-1995 SHINGRIX VACCINE (1 of 2) BERMUDEZ GRIX VACCINE (1 of 2) [facility] Start: 1990 DIABETES SCREEN DIABETES SCREEN [facility] Start: 1980 LIPID SCREEN LIPID SCREEN [facility] Start: 1964 Urine microalbumin profile DTAP,TDAP ,TD (1 - Tdap) [facility] Start: 09-25-1963 HEPATITIS C SCREENING HEPATITIS C SC REENING [facility] Start: 1957 Adult depression scr eening assessment DEPRESSION SCREENING [facility] Immunizations Immunization Date Immunization Notes Care Provider Fa sreekanth 12-25-2014 Influenza virus vaccine [facility] 12-25-2013 Influenza virus vaccine [facility] Payers Date Payer Category Payer Medicaid [id number] 2022 Self-pay [id number] 2013 Medicare [id number] Medicare [id number] Unknown [id number] Unknown [id number] Social History Date Type Detail Facility [facility]: [facility] Start: 06-07-2015 Alcohol intake 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) [facility] Start: 1945 Sex Assigned At Not on file [facility] Start: 03-21-2018 [facility] Start: 07-22-2022 None [facility] Start: 04-11-2015 - [facility] Start: 07-22-2022 Non-smoker [facility] Start: 1945 Sex Assigned At Male [facility] Evaluation note Note Date & Type Note Facility Evaluation note No assessment information availa ble [facility] Work Phone: Advance Directives No Advanced Directives Records FoundDocuments on File Type Date Recorded Patient Head Of Partner Development Expl anation Advance Directive(s) 05/27/2015 8:44 AM Advance Directive(s) 05/26/2015 7:17 AM Advance Directive(s) 05/11/2015 9:56 AM Advance Directive Response Recorded Date/ Time Advance Directives Yes April 10, 2015 12:51pm Living Will Yes March 21 018 11:45am Power of Rehab Services Aide Yes March 21, 2018 11:45am Family History No Family History Records Found Relationship Condition Age at Onset Recorded Date/T johnnie Unknown Family History?Cancer Unknown Margabrielar y 2015 6:30pm Family History?Cancer Unknown Marr y 2015 6:30pm Summary Purpose Additional Source Comments Source Comments (unrecognize d section and content) In the event this informatio n is protected by the Federal Confidentiality of Alcohol and Drug Abuse Patient Records regulations: The Federal rules restrict any use of the information to criminally investigate or prosecute any alcohol or drug abuse patient.[facility] Reason for Visit (unrecogniz ed section and content) Reason Onset Date Comments Refill Request 03/13/2017 Care Teams (unrecognized sec tion and content) Team Status: Active Member Role Status Dates Dr. Landon Doe , DO Family Provider Active Dr. Landon Doe , DO Primary Care Provider Active Team Status: Inactive Member Role Status Dates Dr. Landon Doe , DO Primary Care Prov ider, Attending Provider, Referring Provider Active Team Status: Inactive Member Role Status Dates Dr. Landon Doe , DO Primary Care Provider, Loraine johnson Provider Active Goals (unrecognized section and content) Goals may be documented in a n alternate sectionGoals may be documented in an alternate sectionGoals may be documented in an alternate section (unrecognized sect ion and content) No Status Records Found INFORMATION SOURCE (unrecogn ized section and content) DATE CREATED AUTHOR 10/12/2023 [facility] FOR RECORDS PERTAINING TO PATIENTS WHO ARE OR HAVE BEEN ENROLLED IN A CHEMICAL DEPENDENCY/SUBSTANCEABUSE PROGRAM, SOME INFORMATION MAY BE OMITTED. This clinical summary was aggregated from multiple sources. Caution should be exercised in using it in the provision of clinical care. This summary normalizes information from multiple sources, and as a consequence, information in this document may materially change the coding, format and clinical context of patient data. In addition, data may be omitted in some cases. CLINICAL DECISIONS SHOULD BE BASED ON THE PRIMARY CLINICAL RECORDS. [facility]. provides no warranty or guarantee of the accuracy or completeness of information in this document.
== END | disposition home or self-care (01) ==
LOC: BFHLAB 14:13
PROVIDERS: PCP Family Medicine; Visit Provider Family Medicine
DX: M25.562 Pain in left knee (principal)
CPT/HCPCS: 36415; 84550; 85025; 85652; 86140

== ENCOUNTER → 2024-12-12 | Outpatient (CLI) | payer MEDICAID, SELFPAY ==
--- NOTE | 2024-12-12 10:37 | RAD_ITS ---
PROCEDURE: KNEE 4 OR MORE VIEWS 12/12/2024 REASON FOR EXAM: PAIN IN KNEE TECHNIQUE: Procedure Code: RADKN Modality: DX Procedure: KNEE 4 OR MORE VIEWS Laterality: Left COMPARISON: March 21, 2018 FINDINGS: Status post total left knee arthroplasty. Good anatomic alignment. No hardware failure. Calcifications in the suprapatellar joint space have progressed since previous exam and may be just related to dystrophic calcifications. No acute fracture. Vascular calcifications. RAD/Knee 4 or More Views IMPRESSION: Status post total left knee arthroplasty. No hardware failure or loosening. No acute fracture. Reading Location: [id number]
== END | disposition home or self-care (01) ==
PROVIDERS: PCP Family Medicine; Referring Provider Family Medicine; Visit Provider Family Medicine
DX: M25.562 Pain in left knee (principal)
CPT/HCPCS: 73564

== ENCOUNTER 2025-02-15 17:46 | Emergency (ER) | payer MEDICARE, MEDICAID, SELFPAY ==
[2025-02-15 17:48] VITALS: BP 113/87; PULSE 86; RESP 16; TEMP 37.1; O2SAT 100; BMI 27.3
--- OUTSIDE RECORDS SUMMARY | 2025-02-15 18:14 | XMS RPT_ITS | CCD ---
Author Organization [facility] Care Team Providers Care Equipment Service Lead Name Role Phone Camilla Doe Primary Care Provider Dr. Camilla Doe DO Primary Care Physician [phone] Dr. Camilla Doe DO Attending Physician Dr. Camilla Doe DO Referring Provider Camilla Doe Attending Unavailable Camilla Doe Primary Care Unavailable Camilla Doe Referring Unavailable Camilla Doe Attending Unavailable Camilla Doe Primary Care Unavailable BEN GRADY Attending Unavailable CAMILLA DOE Referring Unavailable CAMILLA DOE Primary Care Unavailable BEN GRADY Referring Unavailable CAMILLA DOE Primary Care Unavailable BEN GRADY Attending Unavailable CAMILLA DOE Primary Care Unavailable Allergies Allergy Classification Reported Allergen(s) Allergy Type Date of Onset Reaction(s) Facility (6 sources) Penicillins; Translations: [PENICILLINS] Allergy to substance 10-01-2009 Unknown [facility] (1 source) Penicillins Drug allergy (disorder) 03-21-2018 [facility] Repository Medications Current Medications Medication Drug Class(es) Dates Sig (Normalized) Sig (Original) acetaminophen 500 mg oral tablet (5 sources) Start: 04-09-2015 acetaminophen 325 mg / oxyCODONE hydrochloride 5 mg oral tablet (5 sources) Opioid Agonist Start: 10-21-2016 Start: 10-21-2016 take 1 tablet by hailey th every four hours as needed Oxycodone-Acetaminophen Active 1 - 2 TABLET PO EVERY 4 HOURS NEEDED October 21, 2016 12:00am ascorbic acid 500 mg oral tablet (6 sources) Vitamin C Start: 04-09-2015 take 1 tablet by mouth once daily Comment on above: Take 500 mg by mouth once daily. calcium carbonate 1500 mg oral tablet (5 sources) Start: 04-09-2015 take 2 tablets by mouth twice daily Start: 04-09-2015 take 1200 mg by mout twice daily Calcium Carbonate Active 1200 MG PO TWICE A DAY April 09, 2015 1:00am cephalexin 500 mg oral capsule (5 sources) Cephalosporin Antibacterial Start: 03-21-2018 take 1 capsule by mouth every six hours cholecalciferol 0.025 mg oral tablet (5 sources) Vitamin D Start: 04-09-2015 take 1 tablet by mouth twice daily docusate sodium 100 mg oral capsule (5 sources) Start: 04-09-2015 take 1 capsule by mouth once daily as needed for constipation Fish Oil-Dha-Epa (3 sources) Start: 04-09-2015 Fish Oil-Dha-Epa Active 1 EACH PO DAILY April 09, 2015 1:00am Fish Oil-Dha-Epa 1 EACH capsule (2 sources) Start: 04-09-2015 take 1 capsule by mouth once daily hydrocortisone butyrate 1 mg/ml topical cream (5 sources) Corticosteroid Start: 04-09-2015 lansoprazole 15 mg delayed release oral capsule (7 sources) Proton Pump Inhibitor Start: 04-09-2015 take 1 capsule by mouth once daily Start: 10-05-2009 take 1 capsule by [facility] once daily lansoprazole (PREVACID) 30 mg capsule Take 1 capsule by mouth once daily. 30 capsule 12 01/04/2016 Active Comment on above: Take (1) once daily as needed Take 1 capsule by [facility] once daily. magnesium hydroxide 80 mg/ml oral suspension (5 sources) Start: 04-09-2015 take 1 mL by mouth once daily as needed Start: 04-09-2015 take 1 mL by mouth o nce daily as needed Magnesium Hydroxide Active 30 ML PO DAILY NEEDED April 09, 2015 1:00am Jmzwyzkz-Adk-Ns-Lycopen-Lute in (Centrum Silver) 1 EACH tablet (5 sources) Start: 04-09-2015 take 1 tablet by mouth once daily Start: 04-09-2015 [facility] Zvvzutan-Gim-Sc-Lycopen-Lutein (Centrum Silver) 1 EACH tablet Active 1 EACH PO DAILY April 09, 2015 1:00am traMADol hydrochloride 50 mg oral tablet (6 sources) Opioid Agonist Start: 08-23-2015 take 1 tablet by mouth twice daily as needed for pain Completed/Discontinued Medications Medication Drug Class(es) Dates Sig [...] on above: Take 1 capsule by mo [facility]. Take one(1) capsule two(2) times daily. (may use generic) Fish Oil-Ardara-3 Fatty Acids 300-1,000 mg cap (1 source) Fish Oil-Ardara-3 Fatty Acids 300-1,000 mg cap Take by [...] aily. naproxen sodium 220 mg oral tablet (5 sources) Nonsteroidal Anti-inflammatory Drug Start: 04-09-2015 End: 04-20-2015 take 1 tablet by mouth every twelve hours as needed for pain Naproxen Sodium (Aleve) 220 MG tablet Discontinued 220 mg PO EVERY 12 HOURS NEEDED as needed for Pain April 09, 2015 1:00am April 20, 2015 3:15pm Problems Active Problems Problem Classification Problem Date Documented Da te Episodic/Chronic Complication of device; implant or graft (2 sources) Pain due to internal orthopedic prosthetic devices, implants and grafts, initial encounter; Translations: [Pain due to internal orthopedic prosthetic devices, implants and grafts, initial encounter] Onset: 5 Episodic Deficiency and other anemia (1 source) Iron deficiency anemia due to blood loss; Translations: [Iron deficiency anemia secondary to blood loss (chronic)] Onset: 6 04-18-2015 Chronic Gastrointestinal hemorrhage (5 sources) Gastritis medicamentosa; Translations: [Gastrointestinal hemorrhage, unspecified] 04-09-2015 Episodic Other connective tissue disease (1 source) Presence of left artificial knee joint; Translations: [Pain due to total left knee replacement, initial encounter] Onset: 5 Chronic Other connective tissue disease (1 source) Presence of right artificial hip joint; Translations: [History of revision of total replacement of right hip joint] Onset: 5 Chronic Other connective tissue disease (5 sources) Pain in lower limb; Translations: [Pain in leg, unspecified] 04-09-2015 Episodic Other connective tissue disease (5 sources) Pain in left lower limb; Translations: [Pain in left leg] 04-09-2015 Episodic Other gastrointestinal disorders (5 sources) Pneumoperitoneum; Translations: [Other specified disorders of peritoneum] 04-09-2015 Episodic Other injuries and conditions due to external causes (5 sources) Injury of head; Translations: [Unspecified injury of head, initial encounter] 04-09-2015 Episodic Other non-traumatic joint disorders (1 source) Pain in left knee; Translations: [Pain in left knee] Onset: 5 Episodic Peritonitis and intestinal abscess (5 sources) Peritonitis; Translations: [Peritonitis, unspecified] 04-09-2015 Episodic Residual codes; unclassified (1 source) Family history of malignant neoplasm of gastrointestinal tract; Translations: [Family history of malignant neoplasm of digestive organs] 10-01-2009 Episodic Unclassified (5 sources) multiple orthopedic surgeries 04-09-2015 Unclassified (1 source) Degeneration of intervertebral disc of lumbar region, unspecified whether pain present; Translations: [Degeneration of intervertebral disc of lumbar region, unspecified whether pain present] Onset: 5 Past or Other Problems Problem Classification Problem [...] Test Name Value Interpretation Reference Range Facility OV 01-21-2025 CNOV Office Visit (AGPOB1) KATHY HARTMAN ([id number]) 1945 M Date Time Provider Department 01/21/25 3:15 PM BEN GRADY AGPOB1 During your visit today, we recorded the following information about you: Respiration Weight Height 20/minute 71.2 kg 1.626 m Ben Grady MD 01/22/2025 9:09 AM Signed ORTHOPAEDIC OFFICE NOTE HISTORY OF PRESENT ILLNESS: Kathy Hartman is a 79 year old male who presents with his family today for follow-up of his painful left total knee. Functionally and symptomatically there is been no change of his symptoms. He states that his pain is mostly when he stands. Seems to be global but mainly anterior. Has no pain at rest. He is able to do exercise program working on range of motion with minimal pain. Does note that it does feel stiff and swollen. No radiating pain. No paresthesias. Reviewed nursing note and current pain scale. PAST MEDICAL HISTORY Diagnosis Date Acute gastritis without mention of hemorrhage Diverticulosis of colon (without mention of hemorrhage) Family history of malignant neoplasm of gastrointestinal tract Hypertrophy of prostate with urinary obstruction and other lower urinary tract symptoms (LUTS) Loss of weight Scoliosis associated with other condition Unspecified vitamin D deficiency PAST SURGICAL HISTORY Procedure Laterality Date COLONOSCOPY FLX DX W/COLLJ SPEC WHEN PFRMD 10/03/2000 Colonoscopy COLONOSCOPY FLX DX W/COLLJ SPEC WHEN PFRMD 11/12/2009 COLONOSCOPY FLX DX W/COLLJ SPEC WHEN PFRMD 05/26/2015 normal - 10 year follow up EGD TRANSORAL BIOPSY SINGLE/MULTIPLE 11/12/2009 EGD TRANSORAL BIOPSY SINGLE/MULTIPLE 05/26/2015 healed ulcer GASTRORRHAPHY SUTR PRF8 DUOL/GSTR ULCER WND/INJ 04/09/2015 shock, anemia, acute blood loss LUMBAR SPINE FUSION COMBINED TOTAL HIP REPLACEMENT Right 06/26/2007 Biomet hip - Dr Morrow TOTAL KNEE REPLACEMENT Left 2012 Dr Maricruz Pitts FAMILY HISTORY Problem Relation Age of Onset Colon Cancer Father Diabetes Mother Stroke Brother SOCIAL HISTORY[1] MEDICATIONS: Current Outpatient Medications Medication Sig cyanocobalamin, vitamin B-12, (VITAMIN B-12 PO) Take by mouth. cholecalciferol, vitamin D3, (VITAMIN D3 PO) Take by mouth. acetaminophen (TYLENOL) 325 mg tablet Take 650 mg by mouth every 6 hours as needed for pain. lansoprazole (PREVACID) 30 mg capsule Take 1 capsule by mouth once daily. lansoprazole(PREVACI D 30 MG CAP) Take (1) once daily as needed MEDICATION, NON-DATABASE Vitamin D 1000 IU twice a day traMADol (ULTRAM) 50 mg tablet ascorbic acid (VITAMIN C) 500 mg tablet Take 500 mg by mouth once daily. Fish Oil-Ardara-3 Fatty Acids 300-1,000 mg cap Take by mouth twice daily. chlordiazepoxide-cli dinium 5-2.5 mg ORAL per capsule Take 1 capsule by mouth. Take one(1) capsule two(2) times daily. (may use generic) calcium carbonate/vitamin d3(CALCIUM 600 + D(3) 600 MG-125 UNIT TAB) Take one(1) tablet two(2) times daily. MULTIVITAMIN TAB Take one(1) tablet daily. No current facility-administere d medications for this visit. ALLERGIES: ALLERGIES Allergen Reactions Penicillins Unknown PHYSICAL EXAMINATION: Resp 20 Ht 5' 4" (1.63m) Wt 157 lb (71.2kg) BMI 26.94 kg/(m2). General Appearance: Well appearing, alert, in no acute distress, well-hydrated, well nourished. and Wheelchair Skin: Skin color, texture, turgor normal, no suspicious rashes or lesions. Extremities: Left knee shows a well-healed midline incision. Positive effusion but no warmth or erythema. He has 0 to 115 degrees range of motion passively and actively. Good strength to resisted extension. Good palpable integrity of extensor mechanism. Does have some crepitance in the suprapatellar pouch with motion. Feels like there is perhaps a loose body. Stable to varus and valgus. No pain and good range of motion of the hip. IMAGES: I reviewed radiographs that he brought from [place]. A radiograph from 2018 shows his total knee in good position. Very small ossicle seen in the suprapatellar pouch. These have certainly increased in size compared to current radiographs. Difficult to discern if they are intratendinous or intra-articular. Lab work is within normal limits with no elevation of inflammatory markers. ASSESSMENT AND PLAN: 1. Pain due to total left knee replacement, initial encounter - ICD9: 996.77, V43.65, 338.18, ICD10: T84.84XA, Z96.652 (primary diagnosis) 2. Pain due to internal orthopedic prosthetic devices, implants and grafts, initial encounter - ICD9: 996.78, 338.18, ICD10: T84.84XA Functional Plan: I advised him and his family again that I am a little unclear as to the etiology of these ossicles and whether they are causing his symptoms. Certainly if there are any intra-articular loose body this could give him some pain but I would also expect some symptoms on range of mot (more content not included)... Normal [facility] CBC W Auto Differential pane l (Bld)on 01-15-2025 Basophils (Bld) [#/Vol] 0.05 10*3/uL Normal <0.11 [facility] Comment on above: Order Comment: Speci men Type: BLOOD SPECIMEN Ordering Facility: [facility] Address: [address] [place] [address] Performed By: #### 5 7021-8 #### [facility] CLIA [id number] [address] [place] [address] [place] Basophils/100 WBC (Bld) 1.2 % Normal [facility] Comment on above: Order Comment: Speci men Type: BLOOD SPECIMEN Ordering Facility: [facility] Address: [address] [place] [address] Performed By: #### 5 7021-8 #### [facility] CLIA [id number] [address] Differential cell count method Nom (Bld) Auto Normal [facility] Comment on above: Order Comment: Speci men Type: BLOOD SPECIMEN Ordering Facility: [facility] Address: [address] [place] [address] Performed By: #### 5 7021-8 #### [facility] CLIA [id number] [address] Eosinophils (Bld) [#/Vol] 0.04 10*3/uL Normal <0.46 [facility] Comment on above: Order Comment: Speci men Type: BLOOD SPECIMEN Ordering Facility: [facility] Address: [address] [place] [address] Performed By: #### 5 7021-8 #### [facility] CLIA [id number] [address] Eosinophils/100 WBC (Bld) 1.0 % Normal [facility] Comment on above: Order Comment: Speci men Type: BLOOD SPECIMEN Ordering Facility: [facility] Address: [address] [place] [address] Performed By: #### 5 7021-8 #### [facility] CLIA [id number] [address] Erythrocyte distribution width (RBC) [Ratio] 14.2 % Normal 11.5-15.0 [facility] Comment on above: Order Comment: Speci men Type: BLOOD SPECIMEN Ordering Facility: [facility] Address: [address] [place] [address] Performed By: #### 5 7021-8 #### [facility] CLIA [id number] [address] [place] Hematocrit (Bld) [Volume fraction] 40.6 % Normal 39.0-51.0 [facility] Comment on above: Order Comment: Speci men Type: BLOOD SPECIMEN Ordering Facility: [facility] Address: [address] [place] [address] Performed By: #### 5 7021-8 #### [facility] CLIA [id number] [address] STATES OF [facility] Hemoglobin (Bld) [Mass/Vol] 13.6 g/dL Normal 13.0-17.0 [facility] Comment on above: Order Comment: Speci men Type: BLOOD SPECIMEN Ordering Facility: [facility] Address: [address] [place] [address] Performed By: #### 5 7021-8 #### [facility] CLIA [id number] [address] Immature granulocytes (Bld) [#/Vol] 10*3/uL Normal <0.10 [facility] Comment on above: Order Comment: Speci men Type: BLOOD SPECIMEN Ordering Facility: [facility] Address: [address] [place] [address] Performed By: #### 5 7021-8 #### [facility] CLIA [id number] [address] Immature granulocytes/100 WBC (Bld) 0.2 % Normal [facility] Comment on above: Order Comment: Speci men Type: BLOOD SPECIMEN Ordering Facility: [facility] Address: [address] [place] [address] Performed By: #### 5 7021-8 #### [facility] CLIA [id number] [address] [place] Lymphocytes (Bld) [#/Vol] 0.65 10*3/uL Low 1.00-4.00 [facility] Comment on above: Order Comment: Speci men Type: BLOOD SPECIMEN Ordering Facility: [facility] Address: [address] [place] [address] Performed By: #### 5 7021-8 #### [facility] CLIA [id number] [address] [place] Lymphocytes/100 WBC (Bld) 15.8 % Normal [facility] Comment on above: Order Comment: Speci men Type: BLOOD SPECIMEN Ordering Facility: [facility] Address: [address] [place] [address] Performed By: #### 5 7021-8 #### [facility] CLIA [id number] [address] MCH (RBC) [Entitic mass] 33.1 pg Normal 26.0-34.0 [facility] Comment on above: Order Comment: Speci men Type: BLOOD SPECIMEN Ordering Facility: [facility] Address: [address] [place] [address] Performed By: #### 5 7021-8 #### [facility] CLIA [id number] [address] MCHC (RBC) [Mass/Vol] 33.5 g/dL Normal 30.5-36.0 [facility] Comment on above: Order Comment: Speci men Type: BLOOD SPECIMEN Ordering Facility: [facility] Address: [address] [place] [address] Performed By: #### 5 7021-8 #### [facility] CLIA [id number] [address] MCV (RBC) [Entitic vol] 98.8 fL Normal 80.0-100.0 [facility] Comment on above: Order Comment: Speci men Type: BLOOD SPECIMEN Ordering Facility: [facility] Address: [address] [place] [address] Performed By: #### 5 7021-8 #### [facility] CLIA [id number] [address] Monocytes (Bld) [#/Vol] 0.69 10*3/uL Normal <0.87 [facility] Comment on above: Order Comment: Speci men Type: BLOOD SPECIMEN Ordering Facility: [facility] Address: [address] [place] [address] Performed By: #### 5 7021-8 #### [facility] CLIA [id number] [address] [place] Monocytes/100 WBC (Bld) 16.8 % Normal [facility] Comment on above: Order Comment: Speci men Type: BLOOD SPECIMEN Ordering Facility: [facility] Address: [address] [place] [address] Performed By: #### 5 7021-8 #### [facility] CLIA [id number] [address] [place] Neutrophils (Bld) [#/Vol] 2.67 10*3/uL Normal 1.45-7.50 [facility] Comment on above: Order Comment: Speci men Type: BLOOD SPECIMEN Ordering Facility: [facility] Address: [address] [place] [address] Performed By: #### 5 7021-8 #### [facility] CLIA [id number] [address] Neutrophils/100 WBC (Bld) 65.0 % Normal [facility] Comment on above: Order Comment: Speci men Type: BLOOD SPECIMEN Ordering Facility: [facility] Address: [address] [place] [address] Performed By: #### 5 7021-8 #### [facility] CLIA [id number] [address] [place] Nucleated RBC (Bld) [#/Vol] 10*3/uL Normal <0.01 [facility] Comment on above: Order Comment: Speci men Type: BLOOD SPECIMEN Ordering Facility: [facility] Address: [address] [place] [address] Performed By: #### 5 7021-8 #### [facility] CLIA [id number] [address] [place] Nucleated RBC/100 WBC (Bld) [Ratio] 0.0 /100 WBC Normal [facility] Comment on above: Order Comment: Speci men Type: BLOOD SPECIMEN Ordering Facility: [facility] Address: [address] [place] [address] Performed By: #### 5 7021-8 #### [facility] CLIA [id number] [address] Platelet mean volume (Bld) [Entitic vol] 9.5 fL Normal 9.0-12.7 [facility] Comment on above: Order Comment: Speci men Type: BLOOD SPECIMEN Ordering Facility: [facility] Address: [facility] [place] [address] Performed By: #### 5 7021-8 #### [facility] CLIA [id number] [address] Platelets (Bld) [#/Vol] 273 10*3/uL Normal 150-400 [facility] Comment on above: Order Comment: Speci men Type: BLOOD SPECIMEN Ordering Facility: [facility] Address: [address] [place] [address] Performed By: #### 5 7021-8 #### [facility] CLIA [id number] [address] RBC (Bld) [#/Vol] 4.11 10*6/uL Low 4.20-6.00 [facility] Comment on above: Order Comment: Speci men Type: BLOOD SPECIMEN Ordering Facility: [facility] Address: [address] [place] [address] Performed By: #### 5 7021-8 #### [facility] CLIA [id number] [address] [place] WBC (Bld) [#/Vol] 4.11 10*3/uL Normal 3.70-11.00 [facility] Comment on above: Order Comment: Speci men Type: BLOOD SPECIMEN Ordering Facility: [facility] Address: [address] [place] [address] Performed By: #### 5 7021-8 #### [facility] CLIA [id number] [address] [place] CNOVon 01-15-2025 CNOV Office Visit (AGPOB1) KATHY HARTMAN ([id number]) 1945 M Date Time Provider Department 01/15/25 10:00 AM BEN GRADY AGPOB1 During your visit today, we recorded the following information about you: Respiration Weight Height 18/minute 71.2 kg 1.626 m Ben Grady MD 01/17/2025 11:45 AM Signed ORTHOPAEDIC OFFICE NOTE HISTORY OF PRESENT ILLNESS: Kathy Hartman is a 79 year old male who presents for with his family today for evaluation of a painful left total knee. 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 Fracture of what sounds like his pelvis and acetabulum as a youth with residual arthritic changes. Underwent a right total hip arthroplasty by Dr. Morrow in 2007. Has had an extensive spinal fusion. Left total knee done by Dr. Alcantara in [place] in [address] Alcantara has since . Comes in with a history of pain and giving way of his left knee. Has had a number of falls. Does use a wheelchair for the most part but is ambulatory when able. Pain is diffuse in the anterior aspect of the knee. Does not seem to be radicular. Seems to be mainly associated with weightbearing. Has no back or hip pain currently. Reviewed nursing note and current pain scale. PAST MEDICAL HISTORY Diagnosis Date Acute gastritis without mention of hemorrhage Diverticulosis of colon (without mention of hemorrhage) Family history of malignant neoplasm of gastrointestinal tract Hypertrophy of prostate with urinary obstruction and other lower urinary tract symptoms (LUTS) Loss of weight Scoliosis associated with other condition Unspecified vitamin D deficiency PAST SURGICAL HISTORY Procedure Laterality Date COLONOSCOPY FLX DX W/COLLJ SPEC WHEN PFRMD 10/03/2000 Colonoscopy COLONOSCOPY FLX DX W/COLLJ SPEC WHEN PFRMD 11/12/2009 COLONOSCOPY FLX DX W/COLLJ SPEC WHEN PFRMD 05/26/2015 normal - 10 year follow up EGD TRANSORAL BIOPSY SINGLE/MULTIPLE 11/12/2009 EGD TRANSORAL BIOPSY SINGLE/MULTIPLE 05/26/2015 healed ulcer GASTRORRHAPHY SUTR PRF8 DUOL/GSTR ULCER WND/INJ 04/09/2015 shock, anemia, acute blood loss LUMBAR SPINE FUSION COMBINED SHX REVISION HIP Right 06/26/2007 TOTAL KNEE REPLACEMENT Left 2012 [place] FAMILY HISTORY Problem Relation Age of Onset Colon Cancer Father Diabetes Mother Stroke Brother SOCIAL HISTORY[1] MEDICATIONS: Current Outpatient Medications Medication Sig acetaminophen (TYLENOL) 325 mg tablet Take 650 mg by mouth every 6 hours as needed for pain. lansoprazole (PREVACID) 30 mg capsule Take 1 capsule by mouth once daily. traMADol (ULTRAM) 50 mg tablet ascorbic acid (VITAMIN C) 500 mg tablet Take 500 mg by mouth once daily. Fish Oil-Ardara-3 Fatty Acids 300-1,000 mg cap Take by mouth twice daily. chlordiazepoxide-cli dinium 5-2.5 mg ORAL per capsule Take 1 capsule by mouth. Take one(1) capsule two(2) times daily. (may use generic) lansoprazole(PREVACI D 30 MG CAP) Take (1) once daily as needed (Patient not taking: Reported on 01/15/2025) calcium carbonate/vitamin d3(CALCIUM 600 + D(3) 600 MG-125 UNIT TAB) Take one(1) tablet two(2) times daily. MEDICATION, NON-DATABASE Vitamin D 1000 IU twice a day (Patient not taking: Reported on 01/15/2025) MULTIVITAMIN TAB Take one(1) tablet daily. No current facility-administere d medications for this visit. ALLERGIES: ALLERGIES Allergen Reactions Penicillins Unknown PHYSICAL EXAMINATION: Resp 18 Ht 5' 4" (1.63m) Wt 157 lb (71.2kg) BMI 26.94 kg/(m2). General Appearance: Well appearing, alert, in no acute distress, well-hydrated, well nourished. and Wheelchair Skin: Skin color, texture, turgor normal, no suspicious rashes or lesions. Extremities: Left knee shows a well-healed midline incision. Positive effusion but no warmth or erythema. He has 0 to 215 degrees range of motion passively and actively. Good strength resisted extension. Good palpable integrity of extensor mechanism. Does have some crepitance in the suprapatellar pouch with motion. Feels like there is perhaps a loose body. Stable to varus and valgus. No pain and good range of motion of the hip. IMAGES: I ordered, obtained and interpreted today PA, lateral, skyline views of the left knee. No previous radiographs available for comparison. They demonstrate a cemented Morrison triathlon total knee. Components appear well-fixed and well aligned. Intact bone prosthetic interfaces. There are ossified ossicle seen in the suprapatellar pouch. The patellar component itself in the lateral view appears well aligned. No evidence of fracture. In the skyline view there is a defect seen in the lateral facet of the patella and there are ossicles again seen in the gutters. Impression: Stable appearing left total knee arthroplasty with possible intra-articular loose b (more content not included)... Normal [facility] CRP SerPl-mCncon 01-15-2025 CRP [Mass/Vol] mg/L Normal <0.9 [facility] Comment on above: Order Comment: [place] ny Type: BLOOD SPECIMEN Ordering Facility: [facility] Address: [address] [place] [address] Performed By: #### 2 4322-10, 1987-07 #### [facility] CLIA [id number] [address] [place] [address] [place] Comprehensive metabolic 2000 panelon 01-15-2025 Albumin [Mass/Vol] 4.4 g/dL Normal 3.9-4.9 [facility] Comment on above: Order Comment: Conrado ny Type: BLOOD SPECIMEN Ordering Facility: [facility] Address: [address] [place] [address] Performed By: #### 2 4322-10, 1987-07 #### [facility] CLIA [id number] [address] [place] ALP [Catalytic activity/Vol] 86 U/L Normal 38-113 [facility] Comment on above: Order Comment: [place]rado ny Type: BLOOD SPECIMEN Ordering Facility: [facility] Address: [address] [place] [address] Performed By: #### 2 4322-10, 1987-07 #### [facility] CLIA [id number] [address] OF [facility] ALT With P-5'-P [Catalytic activity/Vol] 10 U/L Normal 10-54 [facility] Comment on above: Order Comment: Speci men Type: BLOOD SPECIMEN Ordering Facility: [facility] Address: [address] [place] [address] Performed By: #### 2 4322-10, 1987-07 #### [facility] CLIA [id number] [address] [place] Anion gap [Moles/Vol] 11 mmol/L Normal 8-15 [facility] Comment on above: Order Comment: Speci men Type: BLOOD SPECIMEN Ordering Facility: [facility] Address: [address] [place] [address] Performed By: #### 2 4322-10, 1987-07 #### [facility] CLIA [id number] [address] OF [facility] AST With P-5'-P [Catalytic activity/Vol] 19 U/L Normal 14-40 [facility] Comment on above: Order Comment: Speci men Type: BLOOD SPECIMEN Ordering Facility: [facility] Address: [address] [place] [address] Performed By: #### 2 4322-10, 1987-07 #### [facility] CLIA [id number] [address] STATES OF [facility] Bilirubin [Mass/Vol] 0.5 mg/dL Normal 0.2-1.3 [facility] Comment on above: Order Comment: Speci men Type: BLOOD SPECIMEN Ordering Facility: [facility] Address: [address] [place] [address] Performed By: #### 2 4322-10, 1987-07 #### [facility] CLIA [id number] [address] [place] Calcium [Mass/Vol] 9.1 mg/dL Normal 8.5-10.2 [facility] Comment on above: Order Comment: Speci men Type: BLOOD SPECIMEN Ordering Facility: [facility] Address: [address] [place] [address] Performed By: #### 2 43206-01, 1987-07 #### [facility] CLIA [id number] [address] [place] Chloride [Moles/Vol] 98 mmol/L Normal 98-107 [facility] Comment on above: Order Comment: Speci men Type: BLOOD SPECIMEN Ordering Facility: [facility] Address: [address] [place] [address] Performed By: #### 2 43206-01, 1987-07 #### [facility] CLIA [id number] [address] [place] CO2 [Moles/Vol] 26 mmol/L Normal 22-30 [facility] Comment on above: Order Comment: Speci men Type: BLOOD SPECIMEN Ordering Facility: [facility] Address: [address] [place] [address] Performed By: #### 2 43206-01, 1987-07 #### [facility] CLIA [id number] [address] OF [facility] Creatinine [Mass/Vol] 0.62 mg/dL Low 0.73-1.22 [facility] Comment on above: Order Comment: Speci men Type: BLOOD SPECIMEN Ordering Facility: [facility] Address: [address] [place] [address] Performed By: #### 2 43206-01, 1987-07 #### [facility] CLIA [id number] [address] [place] eGFRcr SerPlBld CKD-EPI 2020 97 mL/min/1.73m??? Normal >=60 [facility] Comment on above: Order Comment: Speci men Type: BLOOD SPECIMEN Ordering Facility: [facility] Address: [address] [place] [address] Result Comment: Karly mated Glomerular Filtration Rate (eGFR) is calculated using the 2020 CKD-EPI creatinine equation. This equation utilizes serum creatinine, sex, and age as parameters. The creatinine assay has traceable calibration to isotope dilution-mass spectrometry. Refer to KDIGO guidelines for clinical interpretation. In patients with unstable renal function, e.g. those with acute kidney injury, the eGFR may not accurately reflect actual GFR. Performed By: #### 2 4322-10, 1987-07 #### [facility] CLIA [id number] 1 [place] [address] [place] Glucose [Mass/Vol] 94 mg/dL Normal 74-99 [facility] Comment on above: Order Comment: Conrado ny Type: BLOOD SPECIMEN Ordering Facility: [facility] Address: [address] [place] [address] Result Comment: The [place] Diabetes Association (ADA) provides guidance for cutoff values for fasting glucose and random glucose. The ADA defines fasting as no caloric intake for at least 8 hours. Fasting plasma glucose results between 100 to 125 mg/dL indicate increased risk for diabetes (prediabetes). Fasting plasma glucose results greater than or equal to 126 mg/dL meet the criteria for diagnosis of diabetes. In the absence of unequivocal hyperglycemia, results should be confirmed by repeat testing. In a patient with classic symptoms of hyperglycemia or hyperglycemic crisis, random plasma glucose results greater than or equal to 200 mg/dL meet the criteria for diagnosis of diabetes. Reference: Standards of Medical Care in Diabetes 2016, [place] Diabetes Association. Diabetes Care. 2016.39(Suppl 1). Performed By: #### 2 4322-10, 1987-07 #### [facility] CLIA [id number] [address] [place] [address] [place] Potassium [Moles/Vol] 3.9 mmol/L Normal 3.7-5.1 [facility] Comment on above: Order Comment: Conrado ny Type: BLOOD SPECIMEN Ordering Facility: [facility] Address: [address] [place] [address] Performed By: #### 2 4322-10, 1987-07 #### [facility] CLIA [id number] 1 [place] [address] [place] Protein [Mass/Vol] 7.2 g/dL Normal 6.3-8.0 [facility] Comment on above: Order Comment: Conrado ny Type: BLOOD SPECIMEN Ordering Facility: [facility] Address: [address] [place] [address] Performed By: #### 2 43238, 1987-07 #### [facility] CLIA [id number] 1 [place] [address] [place] Sodium [Moles/Vol] 135 mmol/L Low 136-144 [facility] Comment on above: Order Comment: Speci men Type: BLOOD SPECIMEN Ordering Facility: [facility] Address: [address] [place] [address] Performed By: #### 2 43238, 1987-07 #### [facility] CLIA [id number] 1 [place] [address] [place] Urea nitrogen [Mass/Vol] 7 mg/dL Low 9-24 [facility] Comment on above: Order Comment: Speci men Type: BLOOD SPECIMEN Ordering Facility: [facility] Address: [address] [place] [address] Performed By: #### 2 4328, 1987-07 #### [facility] CLIA [id number] 1 [place] [address] [place] ESR Westergren method (Bld) [Velocity]on 01-15-2025 ESR (Bld) [Velocity] 5 mm/h Normal 0-15 [facility] Comment on above: Order Comment: Speci men Type: BLOOD SPECIMEN Ordering Facility: [facility] Address: [address] [place] [address] Performed By: #### 4 537-7 #### [facility] CLIA [id number] [address] [place] [address] [place] Knee 4 or More Viewson 12-12 Knee 4 or More Views [facility] Imaging Services [address] [place] [place], [place] [id number] Knee 4 or More Views MR#: [id number] Acct: [id number] Name: KATHY HARTMAN Rep #: [id number] : 1945 M 79 From: Tony fair MD PCP: Dr. Camilla Doe, DO Status: REG CLI Study: Knee 4 or More Views Date of Exam: 12/12/24 Exam# [id number] Ordering Dr: Camilla Doe DO PROCEDURE: KNEE 4 OR MORE VIEWS 12/12/2024 REASON FOR EXAM: PAIN IN KNEE TECHNIQUE: Procedure Code: RADKN Modality: DX Procedure: KNEE 4 OR MORE VIEWS Laterality: Left COMPARISON: March 21, 2018 FINDINGS: Status post total left knee arthroplasty. Good anatomic alignment. No hardware failure. Calcifications in the suprapatellar joint space have progressed since previous exam and may be just related to dystrophic calcifications. No acute fracture. Vascular calcifications. RAD/Knee 4 or More Views IMPRESSION: Status post total left knee arthroplasty. No hardware failure or loosening. No acute fracture. Reading Location: [facility] CC: Dr. Camilla Doe DO Supervisor [employer]penters: Signed Normal [facility] Absolute lymphocyte countOrd ered By: Camilla Doe on 12-09-2024 Lymphocytes Auto (Unsp spec) [#/Vol] 0.83 10*3/uL 0.83-4.51 [facility] Absolute neutrophil countOrd ered By: Camilla Doe on 12-09-2024 Neutrophils (Bld) [#/Vol] 2.9 10*3/uL 2.0-7.7 [facility] Automated lymphocyte count a s percentage of total leukocytesOrdered By: Camilla Doe on 12-09-2024 Lymphocytes/100 WBC Auto (Unsp spec) 18.7 % Low 19-41 [facility] Basophil percentageOrdered B y: Camilla Doe on 12-09-2024 Basophils/100 WBC (Bld) 1.4 % High 0-1 [facility] CBC W/Diff, Automatedon 11-25 Absolute Lymph 0.83 X10 3/uL Normal 0.83-4.51 [facility] Comment on above: Performed By: #### L 101.9900, L501.1400, L100.0100, L501.6710 #### [facility] [address] [place], [address] Absolute Neut 2.9 X10 3/uL Normal 2.0-7.7 [facility] Comment on above: Performed By: #### L 101.9900, L501.1400, L100.0100, L501.6710 #### [facility] [address] [place], [address] Basophils/100 WBC (Bld) 1.4 % High 0-1 [facility] Comment on above: Performed By: #### L 101.9900, L501.1400, L100.0100, L501.6710 #### [facility] [address] [place], [address] Eosinophils/100 WBC (Bld) 1.8 % Normal 0-5 [facility] Comment on above: Performed By: #### L 101.9900, L501.1400, L100.0100, L501.6710 #### [facility] [address] [place], [address] Erythrocyte distribution width (RBC) [Ratio] 14.0 % Normal 11.6-14.6 [facility] Comment on above: Performed By: #### L 101.9900, L501.1400, L100.0100, L501.6710 #### [facility] [address] [place], [address] Hematocrit (Bld) [Volume fraction] 39.6 % Low 40-54 [facility] Comment on above: Performed By: #### L 101.9900, L501.1400, L100.0100, L501.6710 #### [facility] [address] [place], [address] Hemoglobin (Bld) [Mass/Vol] 13.4 g/dL Normal 13.0-16.5 [facility] Comment on above: Performed By: #### L 101.9900, L501.1400, L100.0100, L501.6710 #### [facility] [address] [place], [address] IG% 0.200 Normal 0.0-0.9 [facility] Comment on above: Result Comment: IG% - Immature Granulocytes (promyelocytes, myelocytes and metamyelocytes) > 1% indicates that a LEFT SHIFT is Present. Performed By: #### L 101.9900, L501.1400, L100.0100, L501.6710 #### [facility] [address] [place], [address] Lymphocytes/100 WBC (Bld) 18.7 % Low 19-41 [facility] Comment on above: Performed By: #### L 101.9900, L501.1400, L100.0100, L501.6710 #### [facility] [address] [place], [address] MCH (RBC) [Entitic mass] 33.1 pg High 27.0-32.0 [facility] Comment on above: Performed By: #### L 101.9900, L501.1400, L100.0100, L501.6710 #### [facility] [address] [place], [address] MCHC (RBC) [Mass/Vol] 33.8 g/dL Normal 32-36 [facility] Comment on above: Performed By: #### L 101.9900, L501.1400, L100.0100, L501.6710 #### [facility] [address] [place], [address] MCV (RBC) [Entitic vol] 97.8 fL High 80-94 [facility] Comment on above: Performed By: #### L 101.9900, L501.1400, L100.0100, L501.6710 #### [facility] [address] [place], [address] Monocytes/100 WBC (Bld) 13.7 % High 0-10 [facility] Comment on above: Performed By: #### L 101.9900, L501.1400, L100.0100, L501.6710 #### [facility] [address] [place], [address] Neutrophils/100 WBC (Bld) 64.2 % Normal 47-70 [facility] Comment on above: Performed By: #### L 101.9900, L501.1400, L100.0100, L501.6710 #### [facility] [address] [place], [address] Nucleated RBC (Bld) [#/Vol] 0 10*3/uL Normal 0-5 [facility] Comment on above: Performed By: #### L 101.9900, L501.1400, L100.0100, L501.6710 #### [facility] [address] [place], [address] Platelet mean volume (Bld) [Entitic vol] 9.8 fL Normal 6.2-12.0 [facility] Comment on above: Performed By: #### L 101.9900, L501.1400, L100.0100, L501.6710 #### [facility] [address] [place], [address] Platelets (Bld) [#/Vol] 253 10*3/uL Normal 150-450 [facility] Comment on above: Performed By: #### L 101.9900, L501.1400, L100.0100, L501.6710 #### [facility] [address] [place], [address] RBC (Bld) [#/Vol] 4.05 10*6/uL Low 4.6-6.2 [facility] Comment on above: Performed By: #### L 101.9900, L501.1400, L100.0100, L501.6710 #### [facility] [address] [place], [address] RDW SD 50.4 fl High 35.1-43.9 [facility] Comment on above: Performed By: #### L 101.9900, L501.1400, L100.0100, L501.6710 #### [facility] [address] [place], [address] WBC (Bld) [#/Vol] 4.4 10*3/uL Normal 4.4-11.0 [facility] Comment on above: Performed By: #### L 101.9900, L501.1400, L100.0100, L501.6710 #### [facility] [address] [place], [address] CRPon 12-09-2024 C-REACTIVE PROT < 3.00 Normal 0.0-3.0 [facility] Comment on above: Performed By: #### L 101.9900, L501.1400, L100.0100, L501.6710 #### [facility] [address] [place], [address] Eosinophil percentageOrdered By: Camilla Doe on 12-09-2024 Eosinophils/100 WBC (Bld) 1.8 % 0-5 [facility] Erythrocyte Sed Rateon 12-09 SED RATE 8 mm/hr Normal 0-20 [facility] Comment on above: Performed By: #### L 101.9900, L501.1400, L100.0100, L501.6710 #### [facility] [address] [place], [address] Erythrocyte distribution wid th ratioOrdered By: Camilla Doe on 12-09-2024 Erythrocyte distribution width (RBC) [Ratio] 14.0 % 11.6-14.6 [facility] Erythrocyte distribution wid th standard deviationOrdered By: Camilla Doe on 12-09-2024 Erythrocyte distribution width (RBC) [Ratio] 50.4 fl High 35.1-43.9 [facility] Erythrocyte sedimentation ra teOrdered By: Camilla Doe on 12-09-2024 ESR (Bld) [Velocity] 8 mm[facility]h 0-20 [facility] Hemat[facility] Auto (Bld) [Volum e fraction]Ordered By: Camilla Doe on 12-09-2024 Hematocrit (Bld) [Volume fraction] 39.6 % Low 40-54 [facility] Hemoglobin measurementOrdere d By: Camilla Doe on 12-09-2024 Hemoglobin (Bld) [Mass/Vol] 13.4 g/dL 13.0-16.5 [facility] Immature granulocytes/100 WB C Auto (Bld)Ordered By: Camilla Doe on 12-09-2024 Immature granulocytes/100 WBC (Bld) 0.200 % 0.0-0.9 [facility] Comment on above: IG% - Immature Granu locytes (promyelocytes, myelocytes and metamyelocytes) > 1% indicates that a LEFT SHIFT is Present. MCV (mean corpuscular volume ) determinationOrdered By: Camilla Doe on 12-09-2024 MCV (RBC) [Entitic vol] 97.8 fL High 80-94 [facility] Mean corpuscular hemoglobin (MCH) determinationOrdered By: Camilla Doe on 12-09-2024 MCH (RBC) [Entitic mass] 33.1 pg High 27.0-32.0 [facility] Mean corpuscular hemoglobin concentration (MCHC) determinationOrdered By: Camilla Doe on 12-09-2024 MCHC (RBC) [Mass/Vol] 33.8 g/dL 32-36 [facility] Mean platelet volume determi nationOrdered By: Camilla Doe on 12-09-2024 Platelet mean volume (Bld) [Entitic vol] 9.8 fL 6.2-12.0 [facility] Monocyte percentageOrdered B y: Camilla Doe on 12-09-2024 Monocytes/100 WBC (Bld) 13.7 % High 0-10 [facility] Neutrophil percentageOrdered By: Camilla Doe on 12-09-2024 Neutrophils/100 WBC (Bld) 64.2 % 47-70 [facility] Nucleated red blood cell per centageOrdered By: Camilla Doe on 12-09-2024 Nucleated RBC/100 WBC (Bld) [Ratio] 0 % 0-5 [facility] Platelet countOrdered By: Jenny Doe on 12-09-2024 Platelets (Bld) [#/Vol] 253 10*3/uL 150-450 [facility] RBC Auto (Bld) [#/Vol]Ordere d By: Camilla Doe on 12-09-2024 RBC (Bld) [#/Vol] 4.05 10*6/uL Low 4.6-6.2 [facility] Serum or plasma C reactive p rotein measurement (mass/volume)Ordered By: Camilla Doe on 12-09-2024 CRP [Mass/Vol] mg/L 0.0-3.0 [facility] Serum or plasma uric acid me asurement (mass/volume)Ordered By: Camilla Doe on 12-09-2024 Urate [Mass/Vol] 4.5 mg/dL 3.5-7.2 [facility] Comment on above: The drugs N-Acetylcy steine and Metamizole may falsely depress this assay. Uric Acidon 12-09-2024 URIC 4.5 mg/dL Normal 3.5-7.2 [facility] Comment on above: Result Comment: The drugs N-Acetylcysteine and Metamizole may falsely depress this assay. Performed By: #### L 101.9900, L501.1400, L100.0100, L501.6710 #### [facility] [address] [facility] [place], [place], [id number] White blood cell (WBC) count Ordered By: Camilla Doe on 12-09-2024 WBC (Bld) [#/Vol] 4.4 10*3/uL 4.4-11.0 [facility] Absolute lymphocyte countOrd ered By: Camilla Doe on 07-24-2023 Lymphocytes Auto (Unsp spec) [#/Vol] 0.74 10*3/uL 0.83-4.51 [facility] Automated lymphocyte count a s percentage of total leukocytesOrdered By: Camilla Doe on 07-24-2023 Lymphocytes/100 WBC Auto (Unsp spec) 16.4 % 19-41 [facility] Basophil percentageOrdered B y: Camilla Doe on 07-24-2023 Basophils/100 WBC (Bld) 1.3 % 0-1 [facility] Bilirubin [Mass/Vol] 0.40 mg/dL 0.20-1.00 [facility] Comment on above: For patients on eltr ombopag therapy, use of Dimension [place] TBIL is not recommended. Chloride [Moles/Vol] 101 mmol/L 98-107 [facility] Eosinophils/100 WBC (Bld) 1.8 % 0-5 [facility] Glucose [Mass/Vol] 125 mg/dL 74-106 [facility] Comment on above: Fasting Glucose resu lt from 100 to 125 mg/dL suggests IMPAIRED HOMEOSTASIS per A.D.A. criteria. Hemoglobin (Bld) [Mass/Vol] 12.8 g/dL 13.0-16.5 [facility] Monocytes/100 WBC (Bld) 14.7 % 0-10 [facility] Neutrophils (Bld) [#/Vol] 2.9 10*3/uL 2.0-7.7 [facility] Neutrophils/100 WBC (Bld) 65.1 % 47-70 [facility] Potassium [Moles/Vol] 4.3 mmol/L 3.5-5.1 [facility] Protein [Mass/Vol] 7.0 g/dL 6.4-8.2 [facility] Sodium [Moles/Vol] 132 mmol/L 136-145 [facility] WBC (Bld) [#/Vol] 4.5 10*3/uL 4.4-11.0 [facility] Determination of erythrocyte mean corpuscular volume (MCV)Ordered By: Camilla Doe on 07-24-2023 MCV (RBC) [Entitic vol] 98.4 fL 80-94 [facility] Erythrocyte distribution wid th ratioOrdered By: Camilla Doe on 07-24-2023 Erythrocyte distribution width (RBC) [Ratio] 14.0 % 11.6-14.6 [facility] Erythrocyte distribution wid th standard deviationOrdered By: Camilla Doe on 07-24-2023 Erythrocyte distribution width (RBC) [Entitic vol] 50.4 fL 35.1-43.9 [facility] Hematocrit Auto (Bld) [Volum e fraction]Ordered By: Camilla Doe on 07-24-2023 Hematocrit (Bld) [Volume fraction] 38.1 % 40-54 [facility] Immature granulocytes/100 WB C Auto (Bld)Ordered By: Camilla Doe on 07-24-2023 Immature granulocytes/100 WBC (Bld) 0.700 % 0.0-0.9 [facility] Comment on above: IG% - Immature Granu locytes (promyelocytes, myelocytes and metamyelocytes) > 1% indicates that a LEFT SHIFT is Present. Laboratory - Chemistry and C hemistry - challengeOrdered By: Camilla Doe on 07-24-2023 Albumin/Globulin [Mass ratio] 1.1 {ratio} 0.9-2.4 [facility] ALP [Catalytic activity/Vol] 62 U/L 45-117 [facility] ALT [Catalytic activity/Vol] 19 U/L 16-61 [facility] CO2 [Moles/Vol] 23.0 mmol/L 21.0-32.0 [facility] Cobalamin (Vitamin B12) [Mass/Vol] 623 pg/mL 211-911 [facility] Globulin (S) [Mass/Vol] 3.3 g/dL 2.2-4.2 [facility] Urea nitrogen/Creatinine [Mass ratio] 22.8 mg/mg 10-20 [facility] Laboratory - Hematology and Cell countsOrdered By: Camilla Doe on 07-24-2023 MCH (RBC) [Entitic mass] 33.1 pg 27.0-32.0 [facility] MCHC (RBC) [Mass/Vol] 33.6 g/dL 32-36 [facility] Nucleated RBC/100 WBC (Bld) [Ratio] 0 % 0-5 [facility] Platelet mean volume (Bld) [Entitic vol] 9.6 fL 6.2-12.0 [facility] Platelets (Bld) [#/Vol] 225 10*3/uL 150-450 [facility] No Panel InformationOrdered By: Camilla Doe on 07-24-2023 Estimated GFR (MDRD) Amer 140 mL/min >60 [facility] Comment on above: GFR Calc Estimated GFR (MDRD) Non-Af Amer 116 mL/min >60 [facility] Comment on above: Non- GFR Calc Vitamin D 25-Hydroxy 35.8 ng/mL [facility] Comment on above: Vitamin D 25(OH) Sta tus Range Deficiency <20 ng/mL (50nmol/L) Insufficiency 20 - 30 ng/mL (50 - 75 nmol/L) Sufficiency 30 - 100 ng/mL (75 - 250 nmol/L) Toxicity >100 ng/mL (>250 nmol/L) RBC Auto (Bld) [#/Vol]Ordere d By: Camilla Doe on 07-24-2023 RBC (Bld) [#/Vol] 3.87 10*6/uL 4.6-6.2 [facility] Serum or plasma calcium kira urement (mass/volume)Ordered By: Camilla Doe on 07-24-2023 Calcium [Mass/Vol] 8.8 mg/dL 8.5-10.1 [facility] Serum or plasma creatinine m easurement (mass/volume)Ordered By: Camilla Doe on 07-24-2023 Creatinine [Mass/Vol] 0.70 mg/dL 0.70-1.30 [facility] Comment on above: The validity of the calculated GFR & GFRAA in patients over 70 years has not been determined. Clinical correlation is essential. Serum or plasma urea nitroge n measurement (mass/volume)Ordered By: Camilla Doe on 07-24-2023 Urea nitrogen [Mass/Vol] 16 mg/dL 7-18 [facility] Thin prep Papanicolaou smear with manual screeningOrdered By: Camilla Doe on 07-24-2023 Thin prep Papanicolaou smear with manual screening 3.7 g/dL 3.2-5.0 [facility] Thin prep Papanicolaou smear with manual screening 21 U/L 15-37 [facility] Thin prep Papanicolaou smear with manual screening 8 5-15 [facility] Laboratory - Chemistry and C hemistry - challengeOrdered By: Camilla Doe on 11-07-2022 Cobalamin (Vitamin B12) [Mass/Vol] 249 pg/mL 211-911 [facility] Absolute lymphocyte countOrd ered By: Dr. Doe on 07-22-2022 Lymphocytes Auto (Unsp spec) [#/Vol] 0.75 10*3/uL 0.83-4.51 [facility] Basophil percentageOrdered B y: Dr. Doe on 07-22-2022 Basophils/100 WBC (Bld) 1.3 % 0-1 [facility] Bilirubin [Mass/Vol] 0.40 mg/dL 0.20-1.00 [facility] Comment on above: For patients on eltr ombopag therapy, use of Dimension [place] TBIL is not recommended. Chloride [Moles/Vol] 98 mmol/L 98-107 [facility] Eosinophils/100 WBC (Bld) 0.8 % 0-5 [facility] Glucose [Mass/Vol] 118 mg/dL 74-106 [facility] Comment on above: Fasting Glucose resu lt from 100 to 125 mg/dL suggests IMPAIRED HOMEOSTASIS per A.D.A. criteria. Neutrophils (Bld) [#/Vol] 2.5 10*3/uL 2.0-7.7 [facility] Neutrophils/100 WBC (Bld) 63.9 % 47-70 [facility] Potassium [Moles/Vol] 4.1 mmol/L 3.5-5.1 [facility] Protein [Mass/Vol] 7.0 g/dL 6.4-8.2 [facility] Sodium [Moles/Vol] 130 mmol/L 136-145 [facility] WBC (Bld) [#/Vol] 3.8 10*3/uL 4.4-11.0 [facility] Blood erythrocytes count (nu mber/volume)Ordered By: Dr. Doe on 07-22-2022 RBC (Bld) [#/Vol] 3.95 10*6/uL 4.6-6.2 [facility] Blood hemoglobin measurement (mass/volume)Ordered By: Dr. Doe on 07-22-2022 Hemoglobin (Bld) [Mass/Vol] 13.1 g/dL 13.0-16.5 [facility] Blood lymphocytes/100 leukoc ytesOrdered By: Dr. Doe on 07-22-2022 Lymphocytes/100 WBC (Bld) 19.6 % 19-41 [facility] Blood monocytes/100 leukocyt esOrdered By: Dr. Doe on 07-22-2022 Monocytes/100 WBC (Bld) 14.1 % 0-10 [facility] Blood platelet mean volumeOr dered By: Dr. Doe on 07-22-2022 Platelet mean volume (Bld) [Entitic vol] 9.7 fL 6.2-12.0 [facility] Determination of erythrocyte mean corpuscular volume (MCV)Ordered By: Dr. Doe on 07-22-2022 MCV (RBC) [Entitic vol] 101.0 fL 80-94 [facility] Hematocrit Auto (Bld) [Volum e fraction]Ordered By: Dr. Doe on 07-22-2022 Hematocrit (Bld) [Volume fraction] 39.9 % 40-54 [facility] Laboratory - Chemistry and C hemistry - challengeOrdered By: Dr. Doe on 07-22-2022 ALP [Catalytic activity/Vol] 58 U/L 45-117 [facility] ALT [Catalytic activity/Vol] 25 U/L 16-61 [facility] CO2 [Moles/Vol] 27.0 mmol/L 21.0-32.0 [facility] Globulin (S) [Mass/Vol] 3.2 g/dL 2.2-4.2 [facility] Urea nitrogen/Creatinine [Mass ratio] 14.7 mg/mg 10-20 [facility] Laboratory - Hematology and Cell countsOrdered By: Dr. Doe on 07-22-2022 Erythrocyte distribution width (RBC) [Entitic vol] 49.9 fL 35.1-43.9 [facility] Erythrocyte distribution width (RBC) [Ratio] 13.3 % 11.6-14.6 [facility] Immature granulocytes/100 WBC (Bld) 0.300 % 0.0-0.9 [facility] Comment on above: IG% - Immature Granu locytes (promyelocytes, myelocytes and metamyelocytes) > 1% indicates that a LEFT SHIFT is Present. MCH (RBC) [Entitic mass] 33.2 pg 27.0-32.0 [facility] Nucleated RBC/100 WBC (Bld) [Ratio] 0 % 0-5 [facility] MCHC Auto (RBC) [Mass/Vol]Or dered By: Dr. Doe on 07-22-2022 MCHC (RBC) [Mass/Vol] 32.8 g/dL 32-36 [facility] No Panel InformationOrdered By: Dr. Doe on 07-22-2022 Estimated GFR (MDRD) Amer 118 mL/min >60 [facility] Comment on above: GFR Calc Estimated GFR (MDRD) Non-Af Amer 97 mL/min >60 [facility] Comment on above: Non- GFR Calc Thyroid Stimulating Hormone (TSH) 1.74 uIU/mL 0.358-3.74 [facility] Vitamin D 25-Hydroxy 22.3 ng/mL [facility] Comment on above: Vitamin D 25(OH) Sta tus Range Deficiency <20 ng/mL (50nmol/L) Insufficiency 20 - 30 ng/mL (50 - 75 nmol/L) Sufficiency 30 - 100 ng/mL (75 - 250 nmol/L) Toxicity >100 ng/mL (>250 nmol/L) Platelets bldOrdered By: Dr. Doe on 07-22-2022 Platelets (Bld) [#/Vol] 246 10*3/uL 150-450 [facility] Serum or plasma albumin kira urement (mass/volume)Ordered By: Dr. Doe on 07-22-2022 Albumin [Mass/Vol] 3.8 g/dL 3.2-5.0 [facility] Serum or plasma albumin/glob ulin mass ratioOrdered By: Dr. Doe on 07-22-2022 Albumin/Globulin [Mass ratio] 1.2 {ratio} 0.9-2.4 [facility] Serum or plasma calcium kira urement (mass/volume)Ordered By: Dr. Doe on 07-22-2022 Calcium [Mass/Vol] 8.6 mg/dL 8.5-10.1 [facility] Serum or plasma creatinine m easurement (mass/volume)Ordered By: Dr. Doe on 07-22-2022 Creatinine [Mass/Vol] 0.82 mg/dL 0.70-1.30 [facility] Comment on above: The validity of the calculated GFR & GFRAA in patients over 70 years has not been determined. Clinical correlation is essential. Serum or plasma urea nitroge n measurement (mass/volume)Ordered By: Dr. Doe on 07-22-2022 Urea nitrogen [Mass/Vol] 12 mg/dL 7-18 [facility] Thin prep Papanicolaou smear with manual screeningOrdered By: Dr. Doe on 07-22-2022 Thin prep Papanicolaou smear with manual screening 22 U/L 15-37 [facility] Thin prep Papanicolaou smear with manual screening 5 5-15 [facility] Encounters Encounter Date Encounter Type Care Provider Facility Start: 01-21-2025 End: 01-21-2025 ambulatory [facility] Facility:[facility] Start: 01-15-2025 End: 01-15-2025 ambulatory BEN [facility]LER [facility] Facility:[facility] Start: 01-15-2025 End: 01-15-2025 ambulatory BEN OMAYRA [facility] Facility:[facility] Start: 12-12-2024 End: 12-12-[address] Camilla Doe DO Work Phone: -[facility] Start: 12-12-2024 End: 12-12-[address] Camilla Doe DO -[facility] Work Phone: Start: 12-12-2024 End: 12-12-2024 ambulatory Camilla Doe Facility:[facility] Start: 12-09-2024 End: 12-09-[address] Camilla Doe DO Work Phone: -[facility]atory [facility] Start: 12-09-2024 End: 12-09-[address] Camilla Doe DO -[facility] Start: 12-09-2024 End: 12-09-2024 ambulatory Camilla Doe Facility:[facility] Start: 07-24-2023 End: 07-24-2023 ambulatory [facility] Work Phone: Start: 07-24-2023 End: 07-24-2023 Patient encounter procedure [facility]-Laboratory, [facility] Start: 11-07-2022 End: 11-07-2022 ambulatory [facility] Work Phone: Start: 11-07-2022 End: 11-07-2022 [facility] Start: 07-22-2022 End: 07-22-2022 ambulatory [facility] Work Phone: Start: 07-22-2022 End: 07-22-2022 [facility] Start: 03-13-2017 End: 03-13-2017 REFILL - MYCHART Elizabeth Carnes PA-C Work Phone: General Surgery Comment on above: RE: Medication Renew al Request Procedures Date Procedure Procedure Detail Performing Clinician Start: 12-12-2024 Radiologic exam knee complete 4/more views Dr. Camilla Doe DO Work Phone: Start: 05-26-2015 Colonoscopy Elizabeth melgoza PA-C Work Phone: Plan of Treatment Date Care Activity Detail Author Start: 11-25-2020 Influenza vaccination INFLUENZA (Sea son Ended) [facility] Start: 05-25-2020 Screening for malign ant neoplasm of colon [facility] Start: 2010 ADVANCE DIRECTIVE DISCUSSION ADVANCE DIRECTIVE DISCUSSION [facility] Start: 2010 PNEUMOVAX AGE 65 AND OVER WITH 5YR LOOKBACK (#1) PNEUMOVAX AGE 65 AND OVER WITH 5YR LOOKBACK (#1) [facility] Start: 09-25-1995 Screening for malign ant neoplasm of colon [facility] Start: 09-25-1995 SHINGRIX VACCINE (1 of 2) BERMUDEZ GRIX VACCINE (1 of 2) [facility] Start: 1990 DIABETES SCREEN DIABETES SCREEN [facility] Start: 1980 LIPID SCREEN LIPID SCREEN [facility] Start: 1964 Urine microalbumin profile DTAP,TDAP ,TD (1 - Tdap) [facility] Start: 09-25-1963 HEPATITIS C SCREENING HEPATITIS C SC REENING [facility] Start: 1957 Adult depression scr eening assessment DEPRESSION SCREENING [facility] Immunizations Immunization Date Immunization Notes Care Provider Merlyn salcedo 12-25-2014 Influenza virus vaccine [facility] 12-25-2013 Influenza virus vaccine [facility] Payers Date Payer Category Payer Medicaid [id number] 2024 Self-pay [id number] 2023 Unknown [id number] 2013 Medicare [id number] 2009 Medicare [id number] Unknown [id number] Unknown [id number] Social History Date Type Detail Facility Start: 06-07-2015 End: 03-21-2018 Tobacco smoking status NHIS Never smoker [facility] Start: 06-07-2015 Alcohol intake 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) [facility] Start: 1945 Sex Assigned At Not on file [facility] Start: 03-21-2018 Tobacco smoking stat [facility] Unknown if ever smoked [facility] Start: 07-22-2022 None [facility] Start: 04-11-2015 - [facility] Start: 07-22-2022 Non-smoker [facility] Start: 1945 Sex Assigned At Male [facility] Sex Male [facility] Progress note 01-22-2025 Note Date & Type Note Facility 01-22-2025 Note HNO ID: [id number] Author: BEN GRADY MD Service: ? Author Type: Physician Type: Progress Notes Filed: 01/22/2025 09:09 Note Text: ORTHOPAEDIC OFFICE NOTE HISTORY OF PRESENT ILLNESS: Kathy Hartman is a 79 year old male who presents with his family today for follow-up of his painful left total knee. Functionally and symptomatically there is been no change of his symptoms. He states that his pain is mostly when he stands. Seems to be global but mainly anterior. Has no pain at rest. He is able to do exercise program working on range of motion with minimal pain. Does note that it does feel stiff and swollen. No radiating pain. No paresthesias. Reviewed nursing note and current pain scale. PAST MEDICAL HISTORY Diagnosis Date Acute gastritis without mention of hemorrhage Diverticulosis of colon (without mention of hemorrhage) Family history of malignant neoplasm of gastrointestinal tract Hypertrophy of prostate with urinary obstruction and other lower urinary tract symptoms (LUTS) Loss of weight Scoliosis associated with other condition Unspecified vitamin D deficiency PAST SURGICAL HISTORY Procedure Laterality Date COLONOSCOPY FLX DX W/COLLJ SPEC WHEN PFRMD 10/03/2000 Colonoscopy COLONOSCOPY FLX DX W/COLLJ SPEC WHEN PFRMD 11/12/2009 COLONOSCOPY FLX DX W/COLLJ SPEC WHEN PFRMD 05/26/2015 normal - 10 year follow up EGD TRANSORAL BIOPSY SINGLE/MULTIPLE 11/12/2009 EGD TRANSORAL BIOPSY SINGLE/MULTIPLE 05/26/2015 healed ulcer GASTRORRHAPHY SUTR PRF8 DUOL/GSTR ULCER WND/INJ 04/09/2015 shock, anemia, acute blood loss LUMBAR SPINE FUSION COMBINED TOTAL HIP REPLACEMENT Right 06/26/2007 Biomet hip - Dr Morrow TOTAL KNEE REPLACEMENT Left 2012 Dr Maricruz Pitts FAMILY HISTORY Problem Relation Age of Onset Colon Cancer Father Diabetes Mother Stroke Brother SOCIAL HISTORY[1] MEDICATIONS: Current Outpatient Medications Medication Sig cyanocobalamin, vitamin B-12, (VITAMIN B-12 PO) Take by mouth. cholecalciferol, vitamin D3, (VITAMIN D3 PO) Take by mouth. acetaminophen (TYLENOL) 325 mg tablet Take 650 mg by mouth every 6 hours as needed for pain. lansoprazole (PREVACID) 30 mg capsule Take 1 capsule by mouth once daily. lansoprazole(PREVACID 30 MG CAP) Take (1) once daily as needed MEDICATION, NON-DATABASE Vitamin D 1000 IU twice a day traMADol (ULTRAM) 50 mg tablet ascorbic acid (VITAMIN C) 500 mg tablet Take 500 mg by mouth once daily. Fish Oil-Ardara-3 Fatty Acids 300-1,000 mg cap Take by mouth twice daily. chlordiazepoxide-clidinium 5-2.5 mg ORAL per capsule Take 1 capsule by mouth. Take one(1) capsule two(2) times daily. (may use generic) calcium carbonate/vitamin d3(CALCIUM 600 + D(3) 600 MG-125 UNIT TAB) Take one(1) tablet two(2) times daily. MULTIVITAMIN TAB Take one(1) tablet daily. No current facility-administered medications for this visit. ALLERGIES: ALLERGIES Allergen Reactions Penicillins Unknown PHYSICAL EXAMINATION: Resp 20 Ht 5' 4" (1.63m) Wt 157 lb (71.2kg) BMI 26.94 kg/(m2). General Appearance: Well appearing, alert, in no acute distress, well-hydrated, well nourished. and Wheelchair Skin: Skin color, texture, turgor normal, no suspicious rashes or lesions. Extremities: Left knee shows a well-healed midline incision. Positive effusion but no warmth or erythema. He has 0 to 115 degrees range of motion passively and actively. Good strength to resisted extension. Good palpable integrity of extensor mechanism. Does have some crepitance in the suprapatellar pouch with motion. Feels like there is perhaps a loose body. Stable to varus and valgus. No pain and good range of motion of the hip. IMAGES: I reviewed radiographs that he brought from [place]. A radiograph from 2018 shows his total knee in good position. Very small ossicle seen in the suprapatellar pouch. These have certainly increased in size compared to current radiographs. Difficult to discern if they are intratendinous or intra-articular. Lab work is within normal limits with no elevation of inflammatory markers. ASSESSMENT AND PLAN: 1. Pain due to total left knee replacement, initial encounter - ICD9: 996.77, V43.65, 338.18, ICD10: T84.84XA, Z96.652 (primary diagnosis) 2. Pain due to internal orthopedic prosthetic devices, implants and grafts, initial encounter - ICD9: 996.78, 338.18, ICD10: T84.84XA Functional Plan: I advised him and his family again that I am a little unclear as to the etiology of these ossicles and whether they are causing his symptoms. Certainly if there are any intra-articular loose body this could give him some pain but I would also expect some symptoms on range of motion actively which he does not seem to have. His pain seems to be worse just with weightbearing. Going to recommend an MRI scan to try and discern whether this calcifications in the tendon are actually intra-articular. Also advised him of my upcoming (more content not included)... [facility] Progress note 01-15-2025 Note Date & Type Note Facility 01-15-2025 Note HNO ID: [id number] Author: BEN GRADY MD Service: ? Author Type: Physician Type: Progress Notes Filed: 01/17/2025 11:45 Note Text: ORTHOPAEDIC OFFICE NOTE HISTORY OF PRESENT ILLNESS: Kathy Hartman is a 79 year old male who presents for with his family today for evaluation of a painful left total knee. 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 Fracture of what sounds like his pelvis and acetabulum as a youth with residual arthritic changes. Underwent a right total hip arthroplasty by Dr. Mrorow in 2007. Has had an extensive spinal fusion. Left total knee done by Dr. Alcantara in [place] in [address]. [address] Alcantara has since . Comes in with a history of pain and giving way of his left knee. Has had a number of falls. Does use a wheelchair for the most part but is ambulatory when able. Pain is diffuse in the anterior aspect of the knee. Does not seem to be radicular. Seems to be mainly associated with weightbearing. Has no back or hip pain currently. Reviewed nursing note and current pain scale. PAST MEDICAL HISTORY Diagnosis Date Acute gastritis without mention of hemorrhage Diverticulosis of colon (without mention of hemorrhage) Family history of malignant neoplasm of gastrointestinal tract Hypertrophy of prostate with urinary obstruction and other lower urinary tract symptoms (LUTS) Loss of weight Scoliosis associated with other condition Unspecified vitamin D deficiency PAST SURGICAL HISTORY Procedure Laterality Date COLONOSCOPY FLX DX W/COLLJ SPEC WHEN PFRMD 10/03/2000 Colonoscopy COLONOSCOPY FLX DX W/COLLJ SPEC WHEN PFRMD 11/12/2009 COLONOSCOPY FLX DX W/COLLJ SPEC WHEN PFRMD 05/26/2015 normal - 10 year follow up EGD TRANSORAL BIOPSY SINGLE/MULTIPLE 11/12/2009 EGD TRANSORAL BIOPSY SINGLE/MULTIPLE 05/26/2015 healed ulcer GASTRORRHAPHY SUTR PRF8 DUOL/GSTR ULCER WND/INJ 04/09/2015 shock, anemia, acute blood loss LUMBAR SPINE FUSION COMBINED SHX REVISION HIP Right 06/26/2007 TOTAL KNEE REPLACEMENT Left 2013 [place] FAMILY HISTORY Problem Relation Age of Onset Colon Cancer Father Diabetes Mother Stroke Brother SOCIAL HISTORY[1] MEDICATIONS: Current Outpatient Medications Medication Sig acetaminophen (TYLENOL) 325 mg tablet Take 650 mg by mouth every 6 hours as needed for pain. lansoprazole (PREVACID) 30 mg capsule Take 1 capsule by mouth once daily. traMADol (ULTRAM) 50 mg tablet ascorbic acid (VITAMIN C) 500 mg tablet Take 500 mg by mouth once daily. Fish Oil-Ardara-3 Fatty Acids 300-1,000 mg cap Take by mouth twice daily. chlordiazepoxide-clidinium 5-2.5 mg ORAL per capsule Take 1 capsule by mouth. Take one(1) capsule two(2) times daily. (may use generic) lansoprazole(PREVACID 30 MG CAP) Take (1) once daily as needed (Patient not taking: Reported on 01/15/2025) calcium carbonate/vitamin d3(CALCIUM 600 + D(3) 600 MG-125 UNIT TAB) Take one(1) tablet two(2) times daily. MEDICATION, NON-DATABASE Vitamin D 1000 IU twice a day (Patient not taking: Reported on 01/15/2025) MULTIVITAMIN TAB Take one(1) tablet daily. No current facility-administered medications for this visit. ALLERGIES: ALLERGIES Allergen Reactions Penicillins Unknown PHYSICAL EXAMINATION: Resp 18 Ht 5' 4" (1.63m) Wt 157 lb (71.2kg) BMI 26.94 kg/(m2). General Appearance: Well appearing, alert, in no acute distress, well-hydrated, well nourished. and Wheelchair Skin: Skin color, texture, turgor normal, no suspicious rashes or lesions. Extremities: Left knee shows a well-healed midline incision. Positive effusion but no warmth or erythema. He has 0 to 215 degrees range of motion passively and actively. Good strength resisted extension. Good palpable integrity of extensor mechanism. Does have some crepitance in the suprapatellar pouch with motion. Feels like there is perhaps a loose body. Stable to varus and valgus. No pain and good range of motion of the hip. IMAGES: I ordered, obtained and interpreted today PA, lateral, skyline views of the left knee. No previous radiographs available for comparison. They demonstrate a cemented Morrison triathlon total knee. Components appear well-fixed and well aligned. Intact bone prosthetic interfaces. There are ossified ossicle seen in the suprapatellar pouch. The patellar component itself in the lateral view appears well aligned. No evidence of fracture. In the skyline view there is a defect seen in the lateral facet of the patella and there are ossicles again seen in the gutters. Impression: Stable appearing left total knee arthroplasty with possible intra-articular loose bodies secondary to remote lateral facet patella fracture. I ordered, obtained and interpreted today AP pelvis for evaluation of left knee pain. No radiographs available for comparison. They show a Biomet constrained right total hip arthroplasty. Evidence (more content not included)... [facility] Radiology Diagnostic study note 12-14-2024 Note Date & Type Note Facility 12-14-2024 Radiology Diagnostic study note [facility] Imaging Services [address] [place], [place] [address] Knee 4 or More Views MR#: [id number] Acct: [id number] Name: KATHY HARTMAN Rep #: [id number] : 1945 M 79 From: Nixon Garcia MD PCP: Dr. Camilla Doe DO Status: REG CLI Study:Knee 4 or More Views Date of Exam: 12/12/24 Exam# [id number] Ordering Dr: Camilla Doe DO PROCEDURE: KNEE 4 OR MORE VIEWS 12/12/2024 REASON FOR EXAM: PAIN IN KNEE TECHNIQUE: Procedure Code: RADKN Modality: DX Procedure: KNEE 4 OR MORE VIEWS Laterality: Left COMPARISON: March 21, 2018 FINDINGS: Status post total left knee arthroplasty. Good anatomic alignment. No hardwarefailure. Calcifications in the suprapatellar joint space have progressed since previous exam and may be just related to dystrophic calcifications. No acute fracture. Vascular calcifications. RAD/Knee 4 or More Views IMPRESSION: Status post total left knee arthroplasty. No hardware failure or loosening. No acute fracture. Reading Location: [id number] CC: Dr. 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 Advance Directive(s) 05/27/2015 8:44 AM Advance Directive(s) 05/26/2015 7:17 AM Advance Directive(s) 05/11/2015 9:56 AM Advance Directive Response Recorded Date/ Time Advance Directives Yes April 10, 2015 12:51pm Living Will Yes March 21 018 11:45am Power of Mold Capper Helper Yes March 21, 2018 11:45am Advance Directive Response Recorded Date/ Time Advance Directives Yes April 10, 2015 12:51pm Family History No Family History Records Found Relationship Condition Age at Onset Recorded Date/T johnnie Unknown Family History?Cancer Unknown Maruar y 2015 6:30pm Family History?Cancer Unknown Maruar y 2015 6:30pm Summary Purpose Additional Source Comments Source Comments (unrecognize d section and content) In the event this informatio n is protected by the Federal Confidentiality of Alcohol and Drug Abuse Patient Records regulations: The Federal rules restrict any use of the information to criminally investigate or prosecute any alcohol or drug abuse patient.[facility] Reason for Visit (unrecogniz ed section and content) Reason Onset Date Comments Refill Request 03/13/2017 Care Teams (unrecognized sec tion and content) Team Status: Active Member Role Status Dates Dr. Camilla Doe , DO Family Provider Active Dr. Camilla Doe , DO Primary Care Provider Active Team Status: Inactive Member Role Status Dates Dr. Camilla Doe , DO Primary Care Prov ider, Attending Provider, Referring Provider Active Team Status: Inactive Member Role Status Dates Dr. Caimlla Doe , DO Primary Care Provider, Attendin g Provider Active Team Status: Active Member Role/Relationship Status Dates Dr. Camilla Doe DO Primary care physician Active Team Status: Inactive Member Role/Relationship Status Dates Dr. Camilla Doe DO Primary care physician Active Start: December 09, 2024 End: December 09, 2024 Dr. Camilla Doe DO Attending physician Active Start: December 09, 2024 End: December 09, 2024 Team Status: Inactive Member Role/Relationship Status Dates Dr. Camilla Doe DO Primary care physician Active Start: December 12, 2024 End: December 12, 2024 Dr. Camilla Doe DO Attending physician Active Start: December 12, 2024 End: December 12, 2024 Dr. Camilla Doe DO Referring Provider Active Start: December 12, 2024 End: December 12, 2024 Goals (unrecognized section and content) Goals may be documented in a n alternate sectionGoals may be documented in an alternate sectionGoals may be documented in an alternate sectionGoals may be documented in an alternate sectionGoals may be documented in an alternate section (unrecognized sect ion and content) No Status Records FoundNo Status Records Found INFORMATION SOURCE (unrecogn ized section and content) DATE CREATED AUTHOR 01/17/2025 [facility] DATE CREATED AUTHOR AUTHOR'S TAYLOR COLON 01/23/2025 [facility] FOR RECORDS PERTAINING TO PATIENTS WHO ARE [...] BE BASED ON THE PRIMARY CLINICAL RECORDS. [employer] provides no warranty or guarantee of the accuracy or completeness of information in this document.
--- NOTE | 2025-02-15 18:44 | CT_ITS ---
EXAM: BRAIN/HEAD WITHOUT CONTRAST CLINICAL HISTORY: 79 y/o M with FALL, HIT HEAD. COMPARISON: None. TECHNIQUE: Routine CT imaging of thehead without IV contrast. Additional multiplanar reformats were obtained. Dose reduction techniques were used including intermediate exposure control (AEC),iterative reconstruction technique, and/or mA and/or KV dose adjustments based on patient's size. FINDINGS: The ventricles, sulci and cisterns are mildly prominent, suggestive of brain parenchymal volume loss. There is no evidence of intracranial hemorrhage. There is no midline shift, mass effect, or extra-axial collection. The tran and white matter differentiation in the bilateral cerebral hemispheres is maintained, refuting an acute, large territorial infarct. There are mild, diffuse, symmetrical, periventricular and subcortical white matter lucencies, a nonspecific finding, which may represent sequela of small vessel disease in a patient of this age. The orbits, visualized paranasal sinuses and mastoids are unremarkable. No depressed skull fractures are identified. CT/Brain/Head without Contrast IMPRESSION: No acute CT process. Reading Location: [facility]
--- NOTE | 2025-02-15 18:44 | CT_ITS ---
PROCEDURE: SPINE CERVICAL WITHOUT CONTRAS 02/15/2025 REASON FOR EXAM: FALL, HIT HEAD TECHNIQUE: Procedure Code: CTS Modality: CT Procedure: SPINE CERVICAL WITHOUT CONTRAS Coronal and Sagittal reconstruction series were provided. One or more dose reduction techniques were used (e.g., Automated exposure control, adjustment of the mA and/or kV according to patient size, use of iterative reconstruction technique. RADIATION DOSE SUMMARY: CTDlvol: 45 mGy DLP: 880 mGycm COMPARISON: None FINDINGS: Severe multilevel degenerative changes. Ankylosis of numerous cervical vertebral bodies. Osseous demineralization. Alignment grossly maintained. No fractures. CT/Spine Cervical without Contras IMPRESSION: No acute CT process in the cervical spine Reading Location: [facility]
--- NOTE | 2025-02-15 19:00 | RAD_ITS ---
PROCEDURE: PELVIS 1 OR 2 VIEWS 02/15/2025 REASON FOR EXAM: FALL TECHNIQUE: Procedure Code: RADPEL Modality: DX Procedure: PELVIS 1 OR 2 VIEWS COMPARISON: None available FINDINGS: Suspected superolateral fracture dislocation of the right arthroplasty hardware with disarticulation of the central aspect of the acetabulum. The acetabulum demonstrates increased sclerosis at the distal articulation site suggesting subacute to chronic etiology. Left hip is intact although demonstrates severe degenerative changes. Osseous demineralization. RAD/Pelvis 1 or 2 Views IMPRESSION: As above. Reading Location: [facility]
[2025-02-15 19:47] VITALS: BP 128/87; PULSE 83; RESP 20; O2SAT 98
[2025-02-15 21:00] VITALS: BP 138/85; PULSE 90; RESP 18; O2SAT 99
[2025-02-15 22:18] VITALS: BP 141/89; PULSE 80; RESP 18; TEMP 37.2; O2SAT 98
--- NOTE | 2025-02-15 22:23 | ED.RN ---
called and spoke with Mira @ [facility], report given, squad ETA [id number]
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
== END 2025-02-15 23:03 | disposition home or self-care (01) ==
PROVIDERS: Emergency Provider Student in an Organized Health Care Education/Training Program; PCP Family Medicine; Visit Provider Student in an Organized Health Care Education/Training Program
DX: S09.90XA Unspecified injury of head, initial encounter (principal); M79.89 Other specified soft tissue disorders; M25.562 Pain in left knee; R26.9 Unspecified abnormalities of gait and mobility; R29.6 Repeated falls; Z91.81 History of falling; W19.XXXA Unspecified fall, initial encounter
CPT/HCPCS: 70450; 72125; 72170; 99284